=== PATIENT | female | born 1950 | race Caucasian/White ===

== ENCOUNTER 2018-03-28 09:29 | Outpatient (RCR) | payer MEDICARE, BC, SELFPAY | END 2018-04-09 23:59 | LOC: DC 09:29 | PROVIDERS: Family Provider Family Medicine; PCP Family Medicine; Visit Provider Family Medicine | DX: E11.9 Type 2 diabetes mellitus without complications (principal); R63.5 Abnormal weight gain; Z79.4 Long term (current) use of insulin | CPT/HCPCS: 97803 ==

== ENCOUNTER → 2018-04-05 14:48 | Outpatient (CLI) | payer MEDICARE, BC, SELFPAY ==
--- NOTE | 2018-04-05 | MASS_PTH ---
PATIENT: EVA EGAN LOC: [facility] U#:[id number] AGE/SX: 75/F ROOM: RE04/05/[address]: Dr. Tez Tyson DDS : 1950 BED: DIS: SPEC #: [id number] RECD: 04/05/18 14:45 STATUS: JUVENTINO AUGUSTINA #: [id number] NADJA: 04/05/18 00:[address]: Tez Tyson DEPT: SURGICAL PATHOLOGY RECD BY: Devin Haley ENTERED: 04/08/18 08:59 SP TYPE: Mass OTHR DR: Dr. Milady Louis MD Tissues: Skin of lip, NOS Procedures: Surgery Specimen Level IV HEADER OPERATION: Biopsy upper lip mass PRE-OP DIAGNOSIS: Probable fibroma TISSUE SUBMITTED: Biopsy upper lip MICROSCOPIC DIAGNOSIS Upper lip, biopsy: Squamous mucosa with subepithelial fibrosis, consistent with irritation fibroma. SJ:sadia 04/09/18 MICROSCOPIC DESCRIPTION Slides are reviewed. GROSS DESCRIPTION Received in fixative is one container labeled with the patient's name and designated lip. The specimen consists of a piece of soliman mucosal tissue measuring 0.5 cm in diameter and 0.3 cm in length. The entire specimen is submitted in one cassette. / SJ:rg 04/08/18 TC:5 CPT: 73133
== END ==
PROVIDERS: Family Provider Family Medicine; PCP Family Medicine; Visit Provider Dentist Oral and Maxillofacial Surgery
DX: R22.0 Localized swelling, mass and lump, head (principal)
CPT/HCPCS: 88305

== ENCOUNTER 2018-06-10 09:11 | Outpatient (RCR) | payer MEDICARE, BC, SELFPAY | END 2018-06-10 23:59 | LOC: DC 09:11 | PROVIDERS: Family Provider Family Medicine; PCP Family Medicine; Visit Provider Family Medicine | DX: E11.9 Type 2 diabetes mellitus without complications (principal); R63.5 Abnormal weight gain; Z79.4 Long term (current) use of insulin | CPT/HCPCS: 97803 ==

== ENCOUNTER 2019-02-27 18:09 | Emergency (ER) | payer MEDICARE, BC, SELFPAY ==
[2019-02-27 18:11] VITALS: BP 147/82; PULSE 100; RESP 20; TEMP 36.2; O2SAT 95; BMI 39.9
--- NOTE | 2019-02-27 18:24 | RAD_ITS ---
HISTORY: Status post fall with chest pain XR Chest 1 View TECHNIQUE: 1 view # of images incl. paperwork: 1 COMPARISON: 09/07/2014 FINDINGS: Normal cardiomediastinal silhouette. Pulmonary vasculature appears normal. The lungs are clear. No pleural effusions or pneumothorax. No acute osseous abnormality of the thorax. RAD/Chest 1 View (Portable) IMPRESSION: 1. No acute cardiopulmonary disease. at 1925 Reported and signed by: Tru Ascencio MD Electronically Signed: Tru Ascencio MD at 19:24 EDT Tel , Service support ,
--- NOTE | 2019-02-27 18:24 | RAD_ITS ---
HISTORY: Status post fall with right femur pain XR Femur Min 2 Views TECHNIQUE: 2 views # of images incl. paperwork: 4 COMPARISON: None. FINDINGS: Comminuted moderately displaced fracture of the proximal femoral diaphysis with oblique fracture plane extending into the left subtrochanteric region. Femoral neck has normal appearance. Mild osteoarthritis of the right hip joint. Mid and distal femur are intact. Soft tissues appear unremarkable. No radiopaque foreign body. RAD/Femur Min 2 Views IMPRESSION: 1. Comminuted moderately displaced proximal femoral diaphyseal fracture with oblique fracture plane extending into the subtrochanteric region. at 1927 Reported and signed by: Tru Ascencio MD Electronically Signed: Tru Ascencio MD at 19:25 EDT Tel , Service support ,
[2019-02-27] MEDS: HYDROmorphone 1 MG/ML Syringe IV ×3 (18:28→20:51)
--- NOTE | 2019-02-27 19:36 | ED.DCSUM_ITS ---
- ER Visit Summary Date of Service: 02/27/19 Chief Complaint: Fall History of Present Illness: The patient is a 69 F who reports that she was trying on pants and slipped and fell. States that she has pain to her left side is 10-10 severity. She has right sided thoracic pain that is 1 out of 10 in severity. No blow to the head or loss of consciousness. She is not on blood thinner. No shoulder, wrist, or back pain. Physical Examination: Vitals: Stable. Afebrile. Neck: No vertebral tenderness. Full ROM without difficulty. Cleared by NEXUS criteria. Back: No vertebral tenderness. General: A&O x 3. NAD. Cardiovascular exam: Regular rate and rhythm, no murmur, rub or gallop. Respiratory exam: Chest nontender. No crepitus. Clear to auscultation bilaterally. No wheezes or stridor. Abdominal exam: Soft, nontender, nondistended, normal bowel sounds. No pain in RUQ or LUQ specifically. No peritoneal signs. Extremity: Obvious deformity of the proximal right femur. She has this held in external rotation. She is neurovascular intact distally with normal sensation light touch and 2+ dorsalis pedis pulse. Test Results: X-ray shows a spiral fracture of the proximal humerus that begins just inferior to the lesser trochanter. Chest x-ray shows no obvious pneumothorax. Emergency Department Course and Treatment: Patient was treated with Dilaudid IV. She was discussed with Dr. Maggy Thomas who asked that we transfer her to a tertiary care center. Treatment Plan: Patient decided to go to [facility]. She was discussed with Dr. Adkins who has accepted her in transfer. She was not placed in a splint and will be transferred in a position of comfort. She is going to the emergency department to see if she needs a traction pin. Disposition: Transferred in improved condition. Impression: 1. Fall. 2. Right proximal femur fracture. This note was generated with [employer] dictation software. It may contain incorrect words, spelling, and punctuation that were not noted in review of the chart prior to signing ED Disposition - Plan for ED Patient: Referrals: Herb Allen [Primary Care Provider] -
[2019-02-27 19:40] VITALS: BP 137/80; PULSE 93; RESP 18; O2SAT 97
[2019-02-27 20:07] VITALS: BP 144/62; PULSE 93; RESP 18; O2SAT 94
== END 2019-02-27 20:59 | disposition short-term general hospital (02) ==
LOC: ED 19:11
PROVIDERS: Emergency Provider Emergency Medicine; Family Provider Family Medicine; PCP Family Medicine
DX: S72.21XA Displaced subtrochanteric fracture of right femur, initial encounter for closed fracture (principal); E10.9 Type 1 diabetes mellitus without complications; M79.7 Fibromyalgia; Z85.43 Personal history of malignant neoplasm of ovary; Z79.4 Long term (current) use of insulin; Z79.82 Long term (current) use of aspirin; Z79.899 Other long term (current) drug therapy; W18.30XA Fall on same level, unspecified, initial encounter; Y93.89 Activity, other specified; Y92.89 Other specified places as the place of occurrence of the external cause; Y99.8 Other external cause status
CPT/HCPCS: 71045; 73552; 96374; 96376; 99285; J7030; A4216

== ENCOUNTER 2020-12-19 16:46 | Emergency (ER) | payer MEDICARE, BC, SELFPAY ==
[2020-12-19 16:47] VITALS: BP 163/73; PULSE 77; RESP 21; TEMP 36.8; O2SAT 100; BMI 38.2
--- NOTE | 2020-12-19 16:52 | CT_ITS ---
EXAM: CT CERVICAL SPINE WITHOUT INTRAVENOUS CONTRAST CLINICAL INDICATION: Trauma TECHNIQUE: Helically acquired images were obtained of the cervical spine without intravenous contrast. 2D reformatted images were reviewed. This CT exam was performed using one or more of the following dose reduction techniques: automated exposure control, adjustment of the mA and/or kV according to patient size, and/or use of iterative reconstruction technique. This report was created using [email or web address] report generation technology. COMPARISON: None. FINDINGS: VERTEBRAE: Anterior spondylosis with disc space narrowing and posterior disc osteophyte complex at C4-C5, C5-C6 and C6-C7. Mild canal narrowing and bilateral foraminal narrowing. No fracture. No traumatic subluxation. No discrete lytic or blastic abnormality. Normal alignment. Normal craniocervical junction and cervicothoracic junction. DISCS/SPINAL CANAL/NEURAL FORAMINA: See above. SOFT TISSUES: Unremarkable. No prevertebral soft tissue swelling. VASCULATURE: Atherosclerosis of the carotid arteries. LYMPH NODES: Unremarkable. No cervical adenopathy. LUNG APICES: Unremarkable as visualized. Clear. CT/Spine Cervical without Contras IMPRESSION: No acute findings in the cervical spine. Electronically Signed: Sandeep Sinclair MD (Brooks) at 18:02 EDT , Service support ,
--- NOTE | 2020-12-19 16:52 | CT_ITS ---
EXAM: CT CHEST, ABDOMEN AND PELVIS WITH INTRAVENOUS CONTRAST CLINICAL INDICATION: Trauma TECHNIQUE: Helically acquired images were obtained of the chest, abdomen and pelvis with intravenous contrast. This CT exam was performed using one or more of the following dose reduction techniques: automated exposure control, adjustment of the mA and/or kV according to patient size, and/or use of iterative reconstruction technique. This report was created using [employer] report generation technology. CONTRAST: IV 100mL [id number] COMPARISON: None. FINDINGS: CHEST: LUNGS AND PLEURAL SPACES: Minimal subpleural atelectasis in the bilateral lower lobes. No mass. No pneumothorax. HEART: Unremarkable. Heart size is normal. No pericardial effusion. MEDIASTINUM: Small hiatal hernia. No mediastinal or hilar adenopathy. Esophagus is unremarkable. THYROID: Unremarkable. No thyroid lesions. ABDOMEN: LIVER: Unremarkable. Homogeneous. No focal mass. GALLBLADDER AND BILE DUCTS: Cholecystectomy. Air within the biliary system compatible with prior sphincterotomy. No intra- or extrahepatic biliary ductal dilation. PANCREAS: Unremarkable. No focal cystic or solid mass. SPLEEN: Unremarkable. Normal size without focal cystic or solid mass. ADRENALS: Unremarkable. No nodules. KIDNEYS AND URETERS: Nonobstructing left renal calculus. No hydronephrosis. Normal renal size and position. STOMACH AND BOWEL: Right lower quadrant ileostomy present. No stomach or bowel distention. No focal inflammatory change. PELVIS: APPENDIX: No evidence of acute appendicitis. BLADDER: Unremarkable. REPRODUCTIVE: Unremarkable as visualized. No mass. CHEST, ABDOMEN and PELVIS: INTRAPERITONEAL SPACE: Unremarkable. No ascites or other fluid collection. No free air. BONES/JOINTS: Degenerative changes of the thoracic spine. Degenerative changes of the lumbar spine. Operative changes of the proximal right femur. No suspicious lytic or blastic abnormality. SOFT TISSUES: Unremarkable. No discrete abdominal or pelvic wall hernia. VASCULATURE: Coronary artery atherosclerosis. Atherosclerosis of the abdominal aorta and iliac arteries. Subcentimeter peripherally calcified splenic artery aneurysms are seen within the splenic hilum; no imaging follow-up needed due to small size. No aortic dissection. No obvious central pulmonary embolism although this study was not performed with the pulmonary embolism protocol. LYMPH NODES: Unremarkable. No enlarged lymph nodes. CT/CT Chest, Abd, Pel w/Contrast IMPRESSION: No acute findings in the chest, abdomen or pelvis. Electronically Signed: Sandeep Sinclair MD (Brooks) at 18:11 EDT , Service support ,
--- NOTE | 2020-12-19 16:52 | CT_ITS ---
EXAM: CT HEAD WITHOUT INTRAVENOUS CONTRAST CLINICAL INDICATION: Trauma TECHNIQUE: Multiple axial images were obtained of the head without intravenous contrast. This CT exam was performed using one or more of the following dose reduction techniques: automated exposure control, adjustment of the mA and/or kV according to patient size, and/or use of iterative reconstruction technique. This report was created using [employer] report generation technology. COMPARISON: None. FINDINGS: BRAIN AND EXTRA-AXIAL SPACES: Unremarkable. No intra- or extra-axial hemorrhage. No evidence of acute infarct. No intracranial mass or mass effect. There is preservation of the sims/white matter interface. Posterior fossa structures are unremarkable. Ventricles are appropriate for age. No hydrocephalus. Basal cisterns are patent. BONES/JOINTS: Hyperostosis frontalis internus. No discrete lytic or blastic abnormalities. SINUSES: Unremarkable as visualized. Clear. MASTOID AIR CELLS: Unremarkable. Clear. ORBITS: Visualized globes, extraocular muscles, optic nerves and retrobulbar fat appear unremarkable. NASAL CAVITY/SEPTUM: Rightward deviation of the nasal septum. CT/Brain/Head without Contrast IMPRESSION: No acute findings in the head/brain. Electronically Signed: Sandeep Sinclair MD (Brooks) at 18:01 EDT , Service support ,
--- NOTE | 2020-12-19 16:52 | CT_ITS ---
EXAM: CT MAXILLOFACIAL WITHOUT INTRAVENOUS CONTRAST CLINICAL INDICATION: Trauma TECHNIQUE: Helically acquired images were obtained of the face without intravenous contrast. This CT exam was performed using one or more of the following dose reduction techniques: automated exposure control, adjustment of the mA and/or kV according to patient size, and/or use of iterative reconstruction technique. This report was created using [employer] report generation technology. COMPARISON: None. FINDINGS: BONES/JOINTS: Unremarkable. No displaced fracture. No discrete lytic or blastic abnormalities. SOFT TISSUES: Unremarkable. No focal subcutaneous swelling. No discrete fluid collections. ORBITS: Unremarkable. Both globes are unremarkable. Extraocular muscles are normal. Retrobulbar fat appears unremarkable. SINUSES: Unremarkable as visualized. Clear. MASTOID AIR CELLS: Unremarkable as visualized. Clear. DENTAL: No acute findings. No periodontal osseous erosion. NASAL CAVITY/SEPTUM: Rightward deviation of the nasal septum with an apical spur. CT/Sinus/Facial Bone IMPRESSION: No acute findings in the face. Electronically Signed: Sandeep Sinclair MD (Brooks) at 18:03 EDT , Service support ,
--- NOTE | 2020-12-19 17:05 | ED.VIS.GEN ---
History of Present Illness Chief Complaint: Fall Narrative: This patient is a 70-year-old female who presents after a fall. She was stepping down off the curb and fell onto her left side. She denies any preceding dizziness or lightheadedness. No loss of consciousness. No vomiting. No headache. She complains of pain at her left jaw chest wrist and hip. She does complain of feeling short of breath but is uncertain if this is just because of the chest pain with inspiration. No recent illness. No fever cough vomiting diarrhea. 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 Past Medical History - Allergies and Home Meds Allergies/Adverse Reactions: Allergies KELLI Inhibitors Allergy (Verified 12/19/20 16:54) Other ciprofloxacin [From Cipro] Adverse Reaction (Verified 12/19/20 16:54) Other causes c-diff TAPE Allergy (Uncoded 12/19/20 16:54) Rash Primary Care Physician: Ana Henning MD [Primary Care Provider] - Past Medical History: - - Ovarian cancer, diabetes, hypertension, hyperlipidemia Surgical History: - - Laparoscopic cholecystectomy Smoking Status: Smoker, status unknown Review of Systems All systems negative except as indicated General: Denies: Fever Eyes: Denies: Visual changes - bilaterally ENT: Denies: Bilateral ear pain Cardiovascular: Reports: Chest pain Respiratory: Reports: Dyspnea Gastrointestinal: Denies: Abdominal pain, Nausea, Vomiting, Diarrhea Musculoskeletal: Reports: Back pain, Extremity Pain. Denies: Myalgias Skin: Denies: Rash Neurological: Denies: Headache Hematologic: Reports: Easy bruising, Easy bleeding Allergy: Denies: Uticaria Physical Exam Vital Signs/Narrative: Vital Signs Temp Pulse Resp BP Pulse Ox 12/19/20 16:47 98.2 F 77 21 H 163/73 H 100 Inital Vital Signs reviewed: Yes General: Well nourished Head: Normocephalic, - - Patient has a hematoma over the left mandible no jaw malocclusion or midface instability Eyes: EOMI ENT: Moist mucous membranes Neck: Nontender Cardiovascular: Regular rate, Regular rhythm Respiratory: No distress, CTA bilaterally, - - Breath sounds bilaterally, left-sided chest wall tenderness no crepitus Abdomen: Soft, Nontender, Nondistended Extremities: - - Active full range of motion of the left lower extremity without pain, full passive range of motion of the left upper extremity she does have pain with movement of the left wrist but no deformity she does have some tenderness along the left wrist Skin: Normal color Neurological: Alert, Oriented x3, - - GCS of 15 with no focal or lateralizing neurological deficits Psychological: Normal affect Diagnostic/Tx/Re-eval Impressions Brain CT 12/19/20 16:52 IMPRESSION: No acute findings in the head/brain. Electronically Signed: Sandeep Sinclair MD (Brooks) at 18:01 EDT , Service support , Cervical Spine CT 12/19/20 16:52 IMPRESSION: No acute findings in the cervical spine. Electronically Signed: Sandeep Sinclair MD (Brooks) at 18:02 EDT , Service support , Chest/Abdomen/Pelvis CT 12/19/20 16:52 IMPRESSION: No acute findings in the chest, abdomen or pelvis. Electronically Signed: Sandeep Sinclair MD (Brooks) at 18:11 EDT , Service support , Facial/Sinus 12/19/20 16:52 IMPRESSION: No acute findings in the face. Electronically Signed: Sandeep Sinclair MD (Brooks) at 18:03 EDT , Service support , Hip X-Ray 12/19/20 17:40 IMPRESSION: No acute findings in the pelvis or left hip. Electronically Signed: Sandeep Sinclair MD (Brooks) at 18:08 EDT , Service support , Wrist X-Ray 12/19/20 17:40 IMPRESSION: No fracture or malalignment. Electronically Signed: Sandeep Sinclair MD (Brooks) at 18:08 EDT , Service support , 12/19/20 16:52 Brain/Head without Contrast [CT] Stat CT Chest, Abd, Pel w/Contrast [CT] Stat Sinus/Facial Bone [CT] Stat Spine Cervical without Contras [CT] Stat 12/19/20 17:40 Hip Min 2 Views (Portable) [RAD] Stat Wrist min 3 Views [RAD] Stat Laboratory Results 12/19/20 12/19/20 12/19/20 17:25 17:25 17:25 WBC 8.5 RBC 4.35 Hgb 12.0 Hct 37.3 MCV 85.7 MCH 27.6 MCHC 32.2 RDW Std Deviation 42.7 RDW Coeff of Vesna 13.6 Plt Count 260 MPV 9.8 Immature Gran % (Auto) 0.900 Neut % (Auto) 69.6 Lymph % (Auto) 17.1 L [place] % (Auto) 8.3 Eos % (Auto) 3.3 Baso % (Auto) 0.8 Absolute Neuts (auto) 5.9 Absolute Lymphs (auto) 1.46 Nucleated RBC % 0 PT 23.5 H INR 2.2 Sodium 135 L Potassium 4.1 Chloride 103 Carbon Dioxide 26.0 Anion Gap 6 BUN 32 H Creatinine 1.15 H Estim Creat Clear Calc 37.65 Est GFR (MDRD) Af Amer 60 Est GFR (MDRD) Non-Af 50 L BUN/Creatinine Ratio 27.8 H Glucose 190 H Calcium 9.4 Total Bilirubin 0.30 AST 23 ALT 43 Alkaline Phosphatase 62 Total Protein 6.8 Albumin 3.4 Globulin 3.4 Albumin/Globulin Ratio 1.0 Ethyl Alcohol 12/19/20 17:25 WBC RBC Hgb Hct MCV MCH MCHC RDW Std Deviation RDW Coeff of [place]na Plt Count MPV Immature Gran % (Auto) Neut % (Auto) Lymph % (Auto) [place] % (Auto) Eos % (Auto) Baso % (Auto) Absolute Neuts (auto) Absolute Lymphs (auto) Nucleated RBC % PT INR Sodium Potassium Chloride Carbon Dioxide Anion Gap BUN Creatinine Estim Creat Clear Calc Est GFR (MDRD) Af Amer Est GFR (MDRD) Non-Af BUN/Creatinine Ratio Glucose Calcium Total Bilirubin AST ALT Alkaline Phosphatase Total Protein Albumin Globulin Albumin/Globulin Ratio Ethyl Alcohol 8.0 - Medical Decision Making Given patient's injury on anticoagulation with complains of head injury facial pain as well as injury to the chest trauma imaging obtained including CT imaging of the head/brain, cervical spine, facial bones, chest abdomen and pelvis. No acute traumatic injuries were identified no intracranial hemorrhage, no fractures. 3 view x-ray of the left wrist and 2 view x-ray of the left hip were obtained. On my interpretation these are negative for fracture. X-rays were read by radiology who agree. Serum laboratory studies were sent as part of trauma evaluation and these are unremarkable. Patient was advised on supportive care. She understands to return for new or worsening symptoms. She was instructed on signs and symptoms to monitor for. The patient was discharged. ED Disposition - Plan for ED Patient: Disposition: Home or Assisted Living Diagnosis: Multiple contusions, Facial hematoma, Closed head injury Instructions: ED Hematoma, ED Facial Contusion, ED Mechanical Fall, ED Head Injury (Adult), ED Soft Tissue Contusion Referrals: Ana Henning MD [Primary Care Provider] -
[2020-12-19] MEDS: Ondansetron 4 MG/2 ML Vial IV (17:23)
[2020-12-19] MEDS: Morphine 4 MG/ML Syringe IV (17:23)
[2020-12-19 17:40] LABS: Absolute Lymphocyte Count 1.46 X10^3/uL (0.83-4.51); Absolute Neutrophil Count 5.9 X10^3/uL (2.0-7.7); Basophil# 0.07 X10^3/uL; Basophil% 0.8 % (0-1); Eosinophil# 0.28 X10^3/uL; Eosinophils% 3.3 % (0-5); Hematocrit 37.3 % (37-47); Lymphocyte # 1.46 X10^3/ul (4.0); Lymphocyte % 17.1 % (19-41); Mean Corp Hgb Conc 32.2 g/dL (32-36); Mean Corpuscular Hgb 27.6 pg (27.0-32.0); Mean Corpuscular Volume 85.7 fL (81-99); Mean Platelet Vol. 9.8 fl (6.2-12.0); Monocyte# 0.71 X10^3/uL; Monocyte% 8.3 % (0-10); NRBC Flagged by Analyzer 0 % (0-5); Neutrophil # 5.93 X10^3/uL (2.7-7.7); Neutrophil % 69.6 % (47-70); Platelet Count 260 K/mm3 (150-450); RBC Distribution Width CV 13.6 % (11.6-14.6); RBC Distribution Width SD 42.7 fl (35.1-43.9); Red Blood Count 4.35 M/mm3 (4.2-5.4); White Blood Count 8.5 K/mm3 (4.4-11.0)
--- NOTE | 2020-12-19 17:40 | RAD_ITS ---
STUDY: X-RAY - LEFT WRIST REASON FOR EXAM: Female, 70 years old. Trauma TECHNIQUE: 3 view(s) of the wrist were obtained. COMPARISON: None. FINDINGS: Normal visualized distal radius and ulna. Normal radiocarpal articulation. Normal distal radioulnar articulation. Normal carpal bones. Normal carpal articulations. There is degenerative arthrosis of the carpometacarpal articulation of the thumb. Normal second through fifth carpometacarpal articulations. Normal visualized metacarpal bones. The soft tissue structures are unremarkable. RAD/Wrist min 3 Views IMPRESSION: No fracture or malalignment. Electronically Signed: Sandeep Sinclair MD (Brooks) at 18:08 EDT , Service support ,
--- NOTE | 2020-12-19 17:40 | RAD_ITS ---
EXAM: XR LEFT HIP WITH PELVIS WHEN PERFORMED, 2 OR 3 VIEWS CLINICAL INDICATION: Trauma TECHNIQUE: Two or three views of the left hip with pelvis when performed. This report was created using [email or web address] report generation technology. COMPARISON: None. FINDINGS: BONES/JOINTS: Degenerative changes of the left hip with acetabular spurring. Operative changes of the right proximal femur partially visualized. SOFT TISSUES: Surgical clips in the left hemipelvis. No soft tissue swelling or gas. OTHER FINDINGS: Excreted contrast in the urinary tract. RAD/Hip Min 2 Views (Portable) IMPRESSION: No acute findings in the pelvis or left hip. Electronically Signed: Sandeep Sinclair MD (Brooks) at 18:08 EDT , Service support ,
[2020-12-19 17:51] LABS: International Normalized Ratio 2.2; Prothrombin Time (Protime)PT. 23.5 SECONDS (11.7-14.9)
[2020-12-19 18:03] LABS: AST(SGOT) 23 U/L (15-37); Alanine Aminotransfer ALT/SGPT 43 U/L (13-56); Albumin, Serum 3.4 g/dL (3.2-5.0); Alkaline Phosphatase 62 U/L (45-117); Anion Gap 6 (5-15); BUN 32 mg/dL (7-18); BUN/Creat Ratio 27.8 RATIO (10-20); Calcium,Total 9.4 mg/dL (8.5-10.1); Chloride 103 mmol/L (98-107); Creatinine, Serum 1.15 mg/dL (0.55-1.02); EST Glomerular Filtration Rate 50 mL/min (>60); Est Glom Filt Rate - Afr Amer 60 mL/min (>60); Estimated Creatinine Clearance 37.65 ml/min; Globulin 3.4 g/dL (2.2-4.2); Glucose 190 mg/dL (74-106); Potassium 4.1 mmol/L (3.5-5.1); Protein, Total 6.8 g/dL (6.4-8.2); Sodium Level 135 mmol/L (136-145)
[2020-12-19 18:47] VITALS: BP 144/71; PULSE 75; RESP 17; O2SAT 95
[2020-12-19 19:10] VITALS: BP 120/54; PULSE 74; RESP 18; O2SAT 95
== END 2020-12-19 19:11 | disposition home or self-care (01) ==
LOC: ED 18:25
PROVIDERS: Emergency Provider Emergency Medicine; PCP Family Medicine Sports Medicine
DX: S00.83XA Contusion of other part of head, initial encounter (principal); S09.90XA Unspecified injury of head, initial encounter; F17.200 Nicotine dependence, unspecified, uncomplicated; I10 Essential (primary) hypertension; E78.5 Hyperlipidemia, unspecified; E11.9 Type 2 diabetes mellitus without complications; W19.XXXA Unspecified fall, initial encounter; Z79.02 Long term (current) use of antithrombotics/antiplatelets; Z79.4 Long term (current) use of insulin
CPT/HCPCS: 70450; 70486; 71260; 72125; 73110; 73502; 74177; 80053; 82077; 85025; 85610; 96374; 96375; 99285; Q9967; A4216; J2405

== ENCOUNTER 2022-03-16 11:52 | Emergency (ER) | payer MEDICARE, BC, SELFPAY ==
[2022-03-16 11:58] VITALS: BP 157/75; PULSE 75; RESP 18; TEMP 37.3; BMI 38.9
--- NOTE | 2022-03-16 12:23 | ED.RN ---
Patient emotionally distraught complaining of issues she is having with a nursing facility taking care of her who has alzheimers. Denies any suicidal attempts or thoughts. She recently had to hire an city attorney for the financial issues she having.
--- NOTE | 2022-03-16 12:54 | EDS_ITS ---
HPI HPI - Psych History of Present Illness Chief Complaint: Mental Health Informant: patient, family and EMS Narrative Narrative: 72-year-old female presenting to the emergency department with stress. Patient states that her has dementia and is in a care home. She states that in December she tried to get on Medicaid and had conflict in relationship with her dependency case manager. She states that this caused her great stress. She states she had to get a supervisor residential. She reports that today she just cannot deal with the stress of caring for him. She denies suicidal or homicidal ideation. She has not reached out to a counselor or primary care. 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 History of non-ST elevation myocardial infarction (NSTEMI) (06/2021) HOCM (hypertrophic obstructive cardiomyopathy) Hyperlipidemia Ileostomy in place Obstructive sleep apnea Osteoporosis Ovarian cancer Home Medications calcium citrate 315 mg calcium-vitamin D3 6.25 mcg (250 unit) tablet 1 ea PO BID 11/10/13 [History Last Taken 11/10/13 08:00] cholecalciferol (vitamin D3) 50 mcg (2,000 unit) tablet 2,000 unit PO DINNER 11/10/13 [History Last Taken 11/09/13 17:00] duloxetine 60 mg capsule,delayed release 60 mg PO DAILY 11/10/13 [History Last Taken 11/10/13 08:00] insulin aspart U-100 100 unit/mL (3 mL) subcutaneous pen (Novolog Flexpen U-100 Insulin aspart) 15 units subcut BREAKFAST 11/10/13 [History Last Taken 11/09/13 17:00] insulin aspart U-100 100 unit/mL (3 mL) subcutaneous pen (Novolog Flexpen U-100 Insulin aspart) units subcut TIDCM 11/10/13 [History Last Taken 11/10/13 08:00] lansoprazole 30 mg capsule,delayed release (Prevacid) 30 mg PO DAILY 11/10/13 [History Last Taken 11/10/13 08:00] multivitamin with folic acid 400 mcg tablet (Thera) 1 tab PO DAILY 11/10/13 [History Last Taken 11/10/13 08:00] albuterol sulfate 90 mcg/actuation aerosol inhaler 2 puff inhalation Q4H PRN PRN Sob &/Or Wheezing 12/19/20 [History Last Taken Unknown] denosumab 60 mg/mL subcutaneous syringe 60 mg SQ 12/19/20 [History Last Taken Unknown] leflunomide 10 mg tablet 10 mg PO DAILY 12/19/20 [History Last Taken Unknown] magnesium oxide 400 mg PO DAILY 12/19/20 [History Last Taken Unknown] trazodone 100 mg tablet 100 mg PO QHS 12/19/20 [History Last Taken Unknown] amlodipine 2.5 mg tablet 2.5 mg PO DAILY 12/26/21 [History Last Taken Unknown] aspirin 81 mg tablet,delayed release (Adult Low Dose Aspirin) 81 mg PO DAILY 12/26/21 [History Last Taken Unknown] atorvastatin 40 mg tablet 40 mg PO QHS 12/26/21 [History Last Taken Unknown] carvedilol 12.5 mg tablet 12.5 mg PO BID 12/26/21 [History Last Taken Unknown] clopidogrel 75 mg tablet 75 mg PO DAILY 12/26/21 [History Last Taken Unknown] htxbcrgyh-vfmW-fqoanse-FOS-bromelain 1,937 mg-188 mg/15 mL oral liquid ml PO 12/26/21 [History Last Taken Unknown] estradiol 1 appful vaginal 2XW 12/26/21 [History Last Taken Unknown] hydroxychloroquine 200 mg tablet 200 mg PO DAILY 12/26/21 [History Last Taken Unknown] insulin glargine 100 unit/mL (3 mL) subcutaneous pen (Basaglar KwikPen U-100 Insulin) 17 unit subcut BID 12/26/21 [History Last Taken Unknown] iron 18 mg tablet 18 mg PO DAILY 12/26/21 [History Last Taken Unknown] loperamide 2 mg tablet 2 mg PO Q6H PRN 12/26/21 [History Last Taken Unknown] promethazine 25 mg tablet 25 mg PO Q6H PRN 12/26/21 [History Last Taken Unknown] trospium 20 mg tablet 20 mg PO DAILY 12/26/21 [History Last Taken Unknown] lorazepam 0.5 mg tablet 0.5 mg PO TID PRN anxiety #20 tabs 03/16/22 [Rx Last Taken Unknown] Allergy/AdvReac Type Severity Reaction Status Date / Time KELLI Inhibitors Allergy Other Verified 03/16/22 12:03 ciprofloxacin [From Cipro] AdvReac Other Verified 03/16/22 12:03 TAPE Allergy Rash Uncoded 03/16/22 12:03 Surgical History History of cholecystectomy History of hysterectomy History of laminectomy History of left heart catheterization (07/04/21) Social History Smoking Status: Never smoker ROS ROS ED Constitutional Constitutional ED: Denies chills or weight loss Eyes Eyes: Denies change in vision or diplopia ENT ENT ED: Denies ear pain, rhinorrhea or sore throat Cardiovascular Cardiovascular: Denies chest pain, orthopnea, palpitations or racing heartbeat Respiratory/Chest Respiratory/Chest: Denies cough, dyspnea or orthopnea Gastrointestinal Gastrointestinal: Denies abdominal pain, diarrhea, nausea or vomiting Genitourinary Genitourinary ED: Denies dysuria, hematuria or urinary frequency Musculoskeletal Musculoskeletal: Denies arthralgias or myalgias Integumentary Denies abscess or rash Neurologic Neurologic: Denies headache(s) or weakness Psychiatric Psychiatric: Reports anxiety and depression; Denies suicidal ideation or suicidal thoughts Endocrine Endocrinology: Denies polydipsia, polyphagia or polyuria Allergic/Immunologic Allergic/Immunologic ED: Denies mouth swelling, tongue swelling or urticaria EXAM Physical Exam Const Vital Signs: 03/16/22 11:58 03/16/22 13:00 03/16/22 14:00 Temperature 99.2 F H Temperature Source Temporal Pulse Rate 75 Respiratory Rate 18 18 18 Blood Pressure 157/75 H Blood Pressure Mean 102 03/16/22 15:00 Temperature Temperature Source Pulse Rate Respiratory Rate 18 Blood Pressure Blood Pressure Mean Positive well nourished, well developed and obese General Appearance ED: well developed Nutritional Appearance: obese HEENT Reports normocephalic, head/scalp atraumatic and moist mucous membranes Eyes PERRL and EOMs intact bilaterally Neck no lymphadenopathy, supple and no JVD Resp normal respiratory effort and clear to auscultation bilaterally Cardio regular rate, regular rhythm and no murmurs GI normal to inspection, nondistended, normoactive bowel sounds and non-tender Palpation: soft Back/Spine no CVA tenderness and normal ROM Extremity normal to inspection General Extremety ED: Negative for edema General Extremity: Negative for edema Neuro oriented x3 and CN's II-XII intact bilaterally Sensorium / Orientation: alert Motor Exam: strength 5/5 throughout Psych mental status grossly normal Appearance: grossly normal and appropriate Attitude: agitated Activity / Motor Behavior: restless Speech: rapid Mood & Affect: depressed and tearful Thought Content: No suicidality and No homicidality Memory / Cognition: memory grossly intact Skin no rashes or lesions noted and no wounds MDM MDM MDM Narrative Medical decision making narrative: Patient is not suicidal or homicidal. Due to high volume of mental health patients in the emergency room case management was unable to see them first couple hours. They were able to assess them. She does express some paranoid behaviors such as not wanting to go check her mail or leave the house. She is not however having auditory visual hallucinations. She is not disheveled. She is not suicidal or homicidal. She would benefit from counseling and when I talk to her about the counseling center and the partial hospitalization program. She is scared that we are going to just locked her up. Daughter feels she would do better if she had something for anxiety I can write for some Ativan until she can be seen. Discharge Plan Triage Chief Complaint: Mental Health ED Provider: Sergio Rachel Dx/Rx/DC Orders Clinical Impression: Depression, Anxiety Instructions: ED Anxiety Reaction, ED Depression Prescriptions: New lorazepam [lorazepam] 0.5 mg tablet 0.5 mg PO TID PRN (Reason: anxiety) Qty: 20 0RF No Action hydroxychloroquine 200 mg tablet 200 mg PO DAILY amlodipine 2.5 mg tablet 2.5 mg PO DAILY Brian Hernandez U-100 Insulin 100 unit/mL (3 mL) insulin pen 17 unit subcut BID estradiol 0.01 % (0.1 mg/gram) cream 1 appful vaginal 2XW trospium 20 mg tablet 20 mg PO DAILY peul-xjfG-zcdgzhp-FOS-bromeln 1,937-188 mg/15 mL liquid PO atorvastatin 40 mg tablet 40 mg PO QHS carvedilol 12.5 mg tablet 12.5 mg PO BID Rx Instructions: must administer with a meal/food clopidogrel 75 mg tablet 75 mg PO DAILY aspirin [Adult Low Dose Aspirin] 81 mg tablet,delayed release (DR/EC) 81 mg PO DAILY promethazine 25 mg tablet 25 mg PO Q6H PRN Label Comments: take 1 tablet by mouth every 6 hours if needed for nausea and vomiting loperamide 2 mg tablet 2 mg PO Q6H PRN iron 18 mg tablet 18 mg PO DAILY lansoprazole [Prevacid] 30 MG capsule 30 mg PO DAILY Label Comments: acid reflux duloxetine 60 MG capsule 60 mg PO DAILY Label Comments: fibromyalgia/depression insulin aspart U-100 [Novolog Flexpen U-100 Insulin] 100 UNITS/ML insulin pen 15 units subcut BREAKFAST Label Comments: diabetes insulin aspart U-100 [Novolog Flexpen U-100 Insulin] 100 UNITS/ML insulin pen subcut TIDCM Label Comments: diabetes Rx Instructions: sliding scale cholecalciferol (vitamin D3) 2,000 UNIT tablet 2,000 unit PO DINNER Label Comments: supplement calcium citrate-vitamin D3 1 EACH tablet 1 ea PO BID Label Comments: supplement multivitamin with folic acid [Thera] 1 TABLET tablet 1 tab PO DAILY Label Comments: supplement leflunomide 10 MG tablet 10 mg PO DAILY trazodone 100 MG tablet 100 mg PO QHS albuterol sulfate 1 INHALER inhaler 2 puff INHALATION Q4H PRN PRN (Reason: Sob &/Or Wheezing) denosumab 60 MG/ML syringe 60 mg SQ magnesium oxide 200 MG tablet 400 mg PO DAILY Primary Care Provider: Pavithra Medellin Referrals: Counseling,Center [GROUP OF PHYSICIANS] - As soon as possible (for mental health counseling) Pavithra Medellin MD [Primary Care Provider] - As soon as possible Disposition Disposition: Home, Self Care
[2022-03-16 13:00] VITALS: RESP 18
[2022-03-16 14:00] VITALS: RESP 18
[2022-03-16 15:00] VITALS: RESP 18
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
[2022-03-16 17:34] VITALS: BP 152/59; PULSE 78
--- NOTE | 2022-03-17 16:20 | CM.ED ---
Addendum entered by Sarita Banegas 03/17/22 16:35: SW received call from pt. Pt states that she is doing ok today. Pt states that [facility] behavior health did call her and they felt pt would benefit more from 1 on 1 therapy 3x a week so they referred her to different agencies. Pt states that she called the numbers and are supposed to call her back. SW informed pt that this worker did call [facility]PS and [facility]PS to provide APS referral. Lulú state that someone from [facility] was out today to talk to her. SW informed pt that she will need to follow up [facility] her 's Medicaid transferred from [place] to [facility]. Pt states she understands, states [facility] has spoken to her about that. Pt states that her is not able to sign for his Social Security so she has an appointment to get it established that she gets her 's social security and then she can give it to [facility]. SW encouraged pt that if she starts to feel like she wants to harm herself or others to call Crisis or come to ED. Pt states understanding. Addendum entered by Sariat Banegas 03/17/22 16:22: SW attempted to call pt to follow up as Safety Plan was completed for pt, no answer, SW left message for pt to call this worker back. Original Note: Social Work Note SW received message from Olga at [facility]PS stating for this worker to go ahead and call [facility] APS as pt applied for Medicaid in [facility] and pt worked with [facility]. AMALIA placed a call to [facility] and spoke with Janice and provided APS referral. Janice states she will discuss with her mold yard supervisor. Sarita Banegas DRAFTER TOOL DESIGN, MIXER OPERATOR VACUUM PAN [employer]ALT
--- NOTE | 2022-03-29 14:19 | CM.ED ---
AMALIA Note AMALIA received voice mail from Lulú Jarrett advising that she is doing well and requested call back from Sarita Vilchis. AMALIA called Lulú and left voice stating Sarita is not available today but will be available on . AMALIA sent email to Sarita RODNEY
--- NOTE | 2022-03-31 16:53 | CM.ED ---
AMALIA received voice mail message from Lulú Jarrett [phone] who stated that she wanted to update the social science teacher, Sarita Vilchis. AMALIA called and left voice mail for Lulú Jarrett advising her that Sarita was not available today but will be back on Sunday at this number. Diana RODNEY
--- NOTE | 2022-04-03 15:19 | CM.ED ---
On this date forensic social worker received call from Lulú Jarrett. She said that she is having a rough time. She said that she would be coming into the ED. Lulú asked if the ED would turn her away? Lulú was advised that the ED staff would not turn her away. Lulú inquired as to how late patient is working and AMALIA advised Lulú. AMALIA notified art specialist Elaine RODNEY
== END 2022-03-16 17:34 | disposition home or self-care (01) ==
PROVIDERS: Emergency Provider Emergency Medicine; PCP Internal Medicine; Visit Provider Emergency Medicine
DX: F32.A Depression, unspecified (principal); I42.1 Obstructive hypertrophic cardiomyopathy; Z79.4 Long term (current) use of insulin; F41.9 Anxiety disorder, unspecified; I25.10 Atherosclerotic heart disease of native coronary artery without angina pectoris; E78.5 Hyperlipidemia, unspecified; I25.2 Old myocardial infarction; G47.33 Obstructive sleep apnea (adult) (pediatric); E66.9 Obesity, unspecified; Z79.899 Other long term (current) drug therapy; Z79.82 Long term (current) use of aspirin
CPT/HCPCS: 99284

== ENCOUNTER 2022-04-03 16:10 | Emergency (ER) | payer MEDICARE, BC, SELFPAY ==
[2022-04-03 16:11] VITALS: BP 173/76; PULSE 86; RESP 18; TEMP 36.5; O2SAT 96; BMI 36.1
--- NOTE | 2022-04-03 16:14 | EKG12_ITS ---
Test Reason : MENTAL HEALTH Blood Pressure : / mmHG Vent. Rate : 079 BPM Atrial Rate : 079 BPM P-R Int : 140 ms QRS Dur : 080 ms QT Int : 382 ms P-R-T Axes : 053 007 024 degrees QTc Int : 438 ms Normal sinus rhythm Cannot rule out Anterior infarct , age undetermined Abnormal ECG Confirmed by BALTA JIMENEZ, KIN ([id number]), marketing editor HEDY SCHERER ([id number]) on 04/04/2022 11:37:27 AM Referred By: WAYNE Confirmed By:KIN GIFFORD MD
--- NOTE | 2022-04-03 16:26 | EDS_ITS ---
HPI HPI - Psych History of Present Illness Chief Complaint: Mental Health Informant: patient Narrative Narrative: 72-year-old female presenting to the emergency department with stress.? Patient states that her has dementia and is in [place] [facility] [place].? She states that in December she tried to get on Medicaid and had conflict in relationship with her binder caser.? She states that this caused her great stress.? She states she had to get a sanitation worker cleaning equipment.? She reports that today she just cannot deal with the stress of caring for him. She states that today she got a bill from her [facility] [facility] [place] stating that she goes for February and March when she had already paid for February and he moved to a new one at the end of February. She states that she saw her tax examining technician last week and that her heart has gotten worse because of her stress. She is having difficulty sleeping. She is not eating normally. She went to go see a counselor who recommended that she see somebody with more experience so she has an appointment with a new counselor later this week. She has called our social services designee several times and is not coping well. She denies suicidal or homicidal ideation.?? 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 History of non-ST elevation myocardial infarction (NSTEMI) (06/2021) HOCM (hypertrophic obstructive cardiomyopathy) Hyperlipidemia Ileostomy in place Obstructive sleep apnea Osteoporosis Ovarian cancer Home Medications calcium citrate 315 mg calcium-vitamin D3 6.25 mcg (250 unit) tablet 1 ea PO BID 11/10/13 [History Last Taken 11/10/13 08:00] cholecalciferol (vitamin D3) 50 mcg (2,000 unit) tablet 2,000 unit PO DINNER 11/10/13 [History Last Taken 11/09/13 17:00] duloxetine 60 mg capsule,delayed release 120 mg PO DAILY 11/10/13 [History Last Taken 11/10/13 08:00] insulin aspart U-100 100 unit/mL (3 mL) subcutaneous pen (Novolog Flexpen U-100 Insulin aspart) 15 units subcut BREAKFAST 11/10/13 [History Last Taken 11/09/13 17:00] insulin aspart U-100 100 unit/mL (3 mL) subcutaneous pen (Novolog Flexpen U-100 Insulin aspart) units subcut TIDCM 11/10/13 [History Last Taken 11/10/13 08:00] lansoprazole 30 mg capsule,delayed release (Prevacid) 30 mg PO DAILY 11/10/13 [History Last Taken 11/10/13 08:00] multivitamin with folic acid 400 mcg tablet (Thera) 1 tab PO DAILY 11/10/13 [History Last Taken 11/10/13 08:00] albuterol sulfate 90 mcg/actuation aerosol inhaler 2 puff inhalation Q4H PRN PRN Sob &/Or Wheezing 12/19/20 [History Last Taken Unknown] leflunomide 10 mg tablet 10 mg PO DAILY 12/19/20 [History Last Taken Unknown] magnesium oxide 400 mg PO DAILY 12/19/20 [History Last Taken Unknown] trazodone 100 mg tablet 100 mg PO QHS 12/19/20 [History Last Taken Unknown] amlodipine 2.5 mg tablet 5 mg PO DAILY 12/26/21 [History Last Taken Unknown] aspirin 81 mg tablet,delayed release (Adult Low Dose Aspirin) 81 mg PO DAILY 12/26/21 [History Last Taken Unknown] atorvastatin 40 mg tablet 40 mg PO QHS 12/26/21 [History Last Taken Unknown] carvedilol 12.5 mg tablet 12.5 mg PO BID 12/26/21 [History Last Taken Unknown] clopidogrel 75 mg tablet 75 mg PO DAILY 12/26/21 [History Last Taken Unknown] estradiol 0.01% (0.1 mg/gram) vaginal cream 1 appful vaginal 2XW 12/26/21 [History Last Taken Unknown] hydroxychloroquine 200 mg tablet 200 mg PO DAILY 12/26/21 [History Last Taken Unknown] insulin glargine 100 unit/mL (3 mL) subcutaneous pen (Basaglar KwikPen U-100 Insulin) 17 unit subcut BID 12/26/21 [History Last Taken Unknown] iron 18 mg tablet 18 mg PO DAILY 12/26/21 [History Last Taken Unknown] loperamide 2 mg tablet 2 mg PO Q6H PRN Diarrhea 12/26/21 [History Last Taken Unknown] promethazine 25 mg tablet 25 mg PO Q6H PRN Nausea 12/26/21 [History Last Taken Unknown] trospium 20 mg tablet 20 mg PO DAILY 12/26/21 [History Last Taken Unknown] lorazepam 0.5 mg tablet 0.5 mg PO TID PRN anxiety #20 tabs 03/16/22 [Rx Last Taken Unknown] bumetanide 0.5 mg tablet 0.5 mg PO DAILY 04/03/22 [History Last Taken Unknown] Allergy/AdvReac Type Severity Reaction Status Date / Time KELLI Inhibitors Allergy Other Verified 04/03/22 16:13 adhesive tape Allergy Rash Verified 04/03/22 16:13 ciprofloxacin [From Cipro] AdvReac Other Verified 04/03/22 16:13 Surgical History History of cholecystectomy History of hysterectomy History of laminectomy History of left heart catheterization (07/04/21) Social History Smoking Status: Never smoker ROS ROS ED Constitutional Constitutional ED: Denies chills or weight loss Eyes Eyes: Denies change in vision or diplopia ENT ENT ED: Denies ear pain, rhinorrhea or sore throat Cardiovascular Cardiovascular: Denies chest pain, orthopnea, palpitations or racing heartbeat Respiratory/Chest Respiratory/Chest: Denies cough, dyspnea or orthopnea Gastrointestinal Gastrointestinal: Denies abdominal pain, diarrhea, nausea or vomiting Genitourinary Genitourinary ED: Denies dysuria, hematuria or urinary frequency Musculoskeletal Musculoskeletal: Denies arthralgias or myalgias Integumentary Denies abscess or rash Neurologic Neurologic: Denies headache(s) or weakness Psychiatric Psychiatric: Reports anxiety and depression; Denies suicidal ideation or suicidal thoughts Endocrine Endocrinology: Denies polydipsia, polyphagia or polyuria Allergic/Immunologic Allergic/Immunologic ED: Denies mouth swelling, tongue swelling or urticaria EXAM Physical Exam Const Vital Signs: 04/03/22 16:11 04/03/22 18:12 Temperature 97.7 F L Temperature Source Oral Pulse Rate 86 Respiratory Rate 18 16 Blood Pressure 173/76 H Blood Pressure Mean 108 Pulse Ox 96 Oxygen Delivery Method Room Air Positive well nourished and well developed General Appearance ED: well developed HEENT Reports normocephalic, head/scalp atraumatic and moist mucous membranes Eyes PERRL and EOMs intact bilaterally Neck no lymphadenopathy, supple and no JVD Resp normal respiratory effort and clear to auscultation bilaterally Cardio regular rate, regular rhythm and no murmurs GI normal to inspection, nondistended, normoactive bowel sounds and non-tender Palpation: soft Back/Spine no CVA tenderness and normal ROM Extremity normal to inspection General Extremety ED: Negative for edema General Extremity: Negative for edema Neuro oriented x3 and CN's II-XII intact bilaterally Sensorium / Orientation: alert Motor Exam: strength 5/5 throughout Psych mental status grossly normal Psych Narrative: Grandiose thinking. Paranoia. Appearance: grossly normal Mood & Affect: depressed and tearful Thought Content: No suicidality and No homicidality Skin no rashes or lesions noted and no wounds MDM MDM MDM Narrative Medical decision making narrative: Patient is medically cleared for psychiatric admission. Noted white count of 13.1 rather nonspecific. BUN of 43 with a creatinine 1.69. I suspect as this is been elevating over the past couple years this is probably related to her diabetes. Her urine shows 5-10 white cells 1+ bacteria 0-5 epithelial cells. She is nitrate negative. She is asymptomatic. I think that she does not need to be treated at this time we can do a culture. Her TSH is normal. Plan is admission to psychiatric facility Lab Data Attestation: I reviewed the patient's lab results. Labs: Laboratory Results - last 24 hr 04/03/22 04/03/22 04/03/22 16:43 16:43 16:43 WBC 13.1 H RBC 5.19 Hgb 15.3 H Hct 44.8 MCV 86.3 MCH 29.5 MCHC 34.2 RDW Std Deviation 44.6 H RDW Coeff of Vesna 14.3 Plt Count 270 MPV 9.8 Immature Gran % (Auto) 0.500 Neut % (Auto) 76.7 H Lymph % (Auto) 13.0 L [place] % (Auto) 7.4 Eos % (Auto) 1.8 Baso % (Auto) 0.6 Absolute Neuts (auto) 10.0 H Absolute Lymphs (auto) 1.69 Nucleated RBC % 0 Sodium 134 L Potassium 4.8 Chloride 109 H Carbon Dioxide 16.0 L Anion Gap 9 BUN 43 H Creatinine 1.69 H Estim Creat Clear Calc 24.89 Est GFR (MDRD) Af Amer 38 L Est GFR (MDRD) Non-Af 32 L BUN/Creatinine Ratio 25.4 H Glucose 162 H Calcium 9.5 Total Bilirubin 0.60 AST 23 ALT 28 Alkaline Phosphatase 65 Total Protein 7.9 Albumin 3.7 Globulin 4.2 Albumin/Globulin Ratio 0.9 TSH 0.59 Urine Color Urine Clarity Urine pH Ur Specific Riddle Urine Protein Urine Glucose (UA) Urine Ketones Urine Occult Blood Urine Nitrite Urine Bilirubin Urine Urobilinogen Ur Leukocyte Esterase Urine RBC Urine WBC Ur Squamous Epith Cells Urine Bacteria Hyaline Casts Coarse Granular Casts Urine Mucus Urine Opiates Screen Urine Methadone Screen Ur Barbiturates Screen Ur Phencyclidine Scrn Ur Amphetamines Screen MDMA (Ecstasy) Screen U Benzodiazepines Scrn Urine Cocaine Screen U Cannabinoids Screen Ur Drug Screen Comment Ethyl Alcohol < 3.0 04/03/22 04/03/22 18:10 18:10 WBC RBC Hgb Hct MCV MCH MCHC RDW Std Deviation RDW Coeff of Vesna Plt Count MPV Immature Gran % (Auto) Neut % (Auto) Lymph % (Auto) [place] % (Auto) Eos % (Auto) Baso % (Auto) Absolute Neuts (auto) Absolute Lymphs (auto) Nucleated RBC % Sodium Potassium Chloride Carbon Dioxide Anion Gap BUN Creatinine Estim Creat Clear Calc Est GFR (MDRD) Af Amer Est GFR (MDRD) Non-Af BUN/Creatinine Ratio Glucose Calcium Total Bilirubin AST ALT Alkaline Phosphatase Total Protein Albumin Globulin Albumin/Globulin Ratio TSH Urine Color Yellow Urine Clarity Clear Urine pH 5.0 Ur Specific Riddle 1.020 Urine Protein Negative Urine Glucose (UA) Normal Urine Ketones Negative Urine Occult Blood Negative Urine Nitrite Negative Urine Bilirubin Negative Urine Urobilinogen Normal Ur Leukocyte Esterase 25 H Urine RBC 0 SEEN Urine WBC 5-10 SEEN Ur Squamous Epith Cells 0-5 SEEN Urine Bacteria 1+ Hyaline Casts 5-10 SEEN Coarse Granular Casts 0-5 SEEN Urine Mucus 0 SEEN Urine Opiates Screen NEGATIVE Urine Methadone Screen NEGATIVE Ur Barbiturates Screen NEGATIVE Ur Phencyclidine Scrn NEGATIVE Ur Amphetamines Screen NEGATIVE MDMA (Ecstasy) Screen POSITIVE H U Benzodiazepines Scrn NEGATIVE Urine Cocaine Screen NEGATIVE U Cannabinoids Screen NEGATIVE Ur Drug Screen Comment Ethyl Alcohol Discharge Plan Triage Chief Complaint: Mental Health ED Provider: Sergio Rachel Dx/Rx/DC Orders Clinical Impression: Depression, Anxiety, Acute paranoia Prescriptions: No Action hydroxychloroquine 200 mg tablet 200 mg PO DAILY amlodipine 2.5 mg tablet 5 mg PO DAILY Basaglar KwikPen U-100 Insulin 100 unit/mL (3 mL) insulin pen 17 unit subcut BID estradiol 0.01 % (0.1 mg/gram) cream 1 appful vaginal 2XW trospium 20 mg tablet 20 mg PO DAILY atorvastatin 40 mg tablet 40 mg PO QHS carvedilol 12.5 mg tablet 12.5 mg PO BID Rx Instructions: must administer with a meal/food clopidogrel 75 mg tablet 75 mg PO DAILY aspirin [Adult Low Dose Aspirin] 81 mg tablet,delayed release (DR/EC) 81 mg PO DAILY promethazine 25 mg tablet 25 mg PO Q6H PRN (Reason: Nausea) Label Comments: take 1 tablet by mouth every 6 hours if needed for nausea and vomiting loperamide 2 mg tablet 2 mg PO Q6H PRN (Reason: Diarrhea) iron 18 mg tablet 18 mg PO DAILY lansoprazole [Prevacid] 30 MG capsule 30 mg PO DAILY Label Comments: acid reflux duloxetine 60 MG capsule 120 mg PO DAILY Label Comments: fibromyalgia/depression insulin aspart U-100 [Novolog Flexpen U-100 Insulin] 100 UNITS/ML insulin pen 15 units subcut BREAKFAST Label Comments: diabetes insulin aspart U-100 [Novolog Flexpen U-100 Insulin] 100 UNITS/ML insulin pen subcut TIDCM Label Comments: diabetes Rx Instructions: sliding scale cholecalciferol (vitamin D3) 2,000 UNIT tablet 2,000 unit PO DINNER Label Comments: supplement calcium citrate-vitamin D3 1 EACH tablet 1 ea PO BID Label Comments: supplement multivitamin with folic acid [Thera] 1 TABLET tablet 1 tab PO DAILY Label Comments: supplement leflunomide 10 MG tablet 10 mg PO DAILY trazodone 100 MG tablet 100 mg PO QHS albuterol sulfate 1 INHALER inhaler 2 puff INHALATION Q4H PRN PRN (Reason: Sob &/Or Wheezing) magnesium oxide 200 MG tablet 400 mg PO DAILY lorazepam [lorazepam] 0.5 mg tablet 0.5 mg PO TID PRN (Reason: anxiety) Qty: 20 0RF bumetanide 0.5 mg Tablet 0.5 mg PO DAILY Primary Care Provider: Pavithra Medellin Referrals: Pavithra Medellin MD [Primary Care Provider] - Disposition Disposition: Psychiatric Hospital or Unit
--- NOTE | 2022-04-03 16:48 | ED.RN ---
PER DR MORALES, PT DOES NOT NEED TO BE PLACED IN SUICIDAL PRECAUTIONS
--- NOTE | 2022-04-03 16:51 | ED.RN ---
PER RT STU, PT REFUSED EKG. DR MORALES MADE AWARE
[2022-04-03 16:59] LABS: Absolute Lymphocyte Count 1.69 X10^3/uL (0.83-4.51); Basophil# 0.08 X10^3/uL; Basophil% 0.6 % (0-1); Eosinophil# 0.24 X10^3/uL; Eosinophils% 1.8 % (0-5); Hematocrit 44.8 % (37-47); Hemoglobin 15.3 g/dL (12.0-15.0); Lymphocyte # 1.69 X10^3/ul (0.83-4.51); Mean Corp Hgb Conc 34.2 g/dL (32-36); Mean Corpuscular Hgb 29.5 pg (27.0-32.0); Mean Corpuscular Volume 86.3 fL (81-99); Mean Platelet Vol. 9.8 fl (6.2-12.0); Monocyte# 0.97 X10^3/uL; Monocyte% 7.4 % (0-10); NRBC Flagged by Analyzer 0 % (0-5); Neutrophil % 76.7 % (47-70); Platelet Count 270 K/mm3 (150-450); RBC Distribution Width CV 14.3 % (11.6-14.6); RBC Distribution Width SD 44.6 fl (35.1-43.9); Red Blood Count 5.19 M/mm3 (4.2-5.4); White Blood Count 13.1 K/mm3 (4.4-11.0)
[2022-04-03 17:24] LABS: ALB/GLOB Ratio 0.9 RATIO (0.9-2.4); AST(SGOT) 23 U/L (15-37); Alanine Aminotransfer ALT/SGPT 28 U/L (13-56); Albumin, Serum 3.7 g/dL (3.2-5.0); Alkaline Phosphatase 65 U/L (45-117); Anion Gap 9 (5-15); BUN 43 mg/dL (7-18); BUN/Creat Ratio 25.4 RATIO (10-20); Calcium,Total 9.5 mg/dL (8.5-10.1); Chloride 109 mmol/L (98-107); Creatinine, Serum 1.69 mg/dL (0.55-1.02); EST Glomerular Filtration Rate 32 mL/min (>60); Est Glom Filt Rate - Afr Amer 38 mL/min (>60); Estimated Creatinine Clearance 24.89 ml/min; Globulin 4.2 g/dL (2.2-4.2); Glucose 162 mg/dL (74-106); Potassium 4.8 mmol/L (3.5-5.1); Protein, Total 7.9 g/dL (6.4-8.2); Sodium Level 134 mmol/L (136-145); Thyroid Stim Hormone (TSH) 0.59 uIU/mL (0.358-3.74)
[2022-04-03 18:08] LABS: Alcohol, Blood (Medical)-Serum < 3.0 mg/dL
[2022-04-03 18:12] VITALS: RESP 16
[2022-04-03 18:19] LABS: Mucous, Urine 0 SEEN /hpf (<or=2+); Red Blood Cells-Urine 0 SEEN /hpf (0-5)
[2022-04-03 18:25] LABS: Color, Urine Yellow (Yellow); Glucose, Dipstick Normal (Normal); Ketone-Dipstick Negative (Negative); Leukocyte Esterase-Dipstick 25 /ul (Negative); Nitrite-Dipstick Negative (Negative); Occult Blood-Urine Negative /ul (Negative); Protein-Dipstick Negative (Negative); Urine Bilirubin Dipstick Negative (Negative); Urine Clarity Clear (Clear); Urine Urobilinogen Normal (Normal)
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
[2022-04-03 19:03] LABS: Bacteria 1+ /hpf (None Seen); Squamous Epithelial Cells - UA 0-5 SEEN /hpf (5-10); White Blood Cells 5-10 SEEN /hpf (0-5)
[2022-04-03 19:04] LABS: Coarse Granular Cast 0-5 SEEN /lpf (0-5 /lpf); Hyaline Cast 5-10 SEEN /lpf (0-5)
[2022-04-03 19:07] LABS: Amphetamine Urine VISTA NEGATIVE (<1000 ng/mL); Barbiturate Urine VISTA NEGATIVE (< 200 ng/mL); Benzodiazepine Urine VISTA NEGATIVE (< 200 ng/mL); Cocaine Urine VISTA NEGATIVE (< 300 ng/mL); Ecstacy Urine VISTA POSITIVE (< 500 ng/mL); Methadone Urine VISTA NEGATIVE (< 300 ng/mL); PCP Urine VISTA NEGATIVE (< 25 ng/mL); THC Urine VISTA NEGATIVE (< 50 ng/mL); Vista UDS pH Range 4
--- NOTE | 2022-04-03 19:08 | CM.ED ---
Addendum entered by Diana Sandoval 04/03/22 19:42: AMALIA called [facility]'s nurse line and they have no beds in [facility] but may have one tomorrow. AMALIA initiated the referral. AMALIA met with patient and daughter and confirmed that the plan at discharge is to return home, patient has NO CPAP, patient's daughter is POA but paperwork is at the home and patient has had all 4 of the Moderna vaccines. AMALIA faxed referral information to [facility]. Diana RODNEY Addendum entered by Diana Sandoval 04/03/22 19:30: Patient's daughter confirmed that patient's anxiety is debilitating . Original Note: SW met with patient and her daughter. Patient said are they going to lock me up with the criminally insane. SW explained that the criminally insane are not at psych facilities. Patient said does it have bars over the doors and windows and locked. SW explained that inpatient psychs are locked. Patient said are they going to give me my heart pills and social welfare research worker explained it is a hospital. SW explained that there will be individuals with alzheimers and dementia in a geripsych and patient verbalized understanding. Patient said if they would just give me the medicine.. it worked but I ran out and my doctor wouldn't give me anymore until I met with him and I couldn't meet with him till the end of the week. SW asked what patient was referencing and patient showed this sheet writer a prescription bottle for ativan. Daughter brought patient's STOMA supplies. SW called [facility] to update them that patient has a stoma. No answer and then disconnected. SW faxed referral to [facility]. Diana RODNEY
--- NOTE | 2022-04-03 21:52 | CM.ED ---
SW received call from Marisa at [facility] [phone]. She clarified regarding patient's delusions. Marisa called back and inquired about the stoma and Ileotomy and SW advised daughter had brought patient's supplies. AMALIA was advised by Marisa that patient was accepted at [facility]. Marisa said that the SHRINKING MACHINE OPERATOR is Marisa Lopez and the MD is Sharath eNgron. Marisa requested that [facility]ALTH [facility] call for transport. [place] called for transport for patient and transport will be 90-120 minutes. Patient and daughter updated. Daughter went home to get clothes for patient. RN will call report. RN to call report at [phone]. AMALIA called [facility] and stated no bed needed. AMALIA called [facility] and noted that no bed is needed. AMALIA called [facility] and stated no bed is needed. Plan: [facility] in [place].Family provided with information on contact information and address. AMALIA spoke to Trav elliott and patient's car is in the ED parking lot. He stated it would be fine for family to car pick up driver car tomorrow. Diana RODNEY
--- NOTE | 2022-04-03 22:07 | NURSING ---
report called to [facility] [phone]
[2022-04-03 22:13] VITALS: BP 135/76; PULSE 76; RESP 18; O2SAT 97
--- NOTE | 2022-04-04 10:52 | CM.ED ---
Social Work Note SW received message from Lynn at [facility] requesting pt's chart be faxed to them so they can update their chart for pt. AMALIA faxed requested clinicals to [facility]. Sarita Banegas USED CAR MANAGER, CRYOLITE RECOVERY OPERATOR
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
== END 2022-04-03 23:27 ==
LOC: ED 17:20
PROVIDERS: Emergency Provider Emergency Medicine; PCP Internal Medicine; Visit Provider Emergency Medicine
DX: F32.A Depression, unspecified (principal); I42.1 Obstructive hypertrophic cardiomyopathy; F22 Delusional disorders; Z79.4 Long term (current) use of insulin; F41.9 Anxiety disorder, unspecified; I25.10 Atherosclerotic heart disease of native coronary artery without angina pectoris; E78.5 Hyperlipidemia, unspecified; I25.2 Old myocardial infarction; Z79.82 Long term (current) use of aspirin; Z79.899 Other long term (current) drug therapy
CPT/HCPCS: 36415; 80053; 80307; 81001; 82077; 84443; 85025; 87086; 87811; 93005; 99285

== ENCOUNTER → 2022-12-21 | Outpatient (CLI) | payer MEDICARE, BC, SELFPAY ==
[2022-12-21 15:21] LABS: Absolute Lymphocyte Count 1.18 X10^3/uL (0.83-4.51); Basophil# 0.06 X10^3/uL; Basophil% 0.6 % (0-1); Eosinophil# 0.17 X10^3/uL; Eosinophils% 1.7 % (0-5); Hematocrit 38.6 % (37-47); Hemoglobin 12.5 g/dL (12.0-15.0); Lymphocyte # 1.18 X10^3/ul (0.83-4.51); Lymphocyte % 11.6 % (19-41); Mean Corp Hgb Conc 32.4 g/dL (32-36); Mean Corpuscular Hgb 28.2 pg (27.0-32.0); Mean Corpuscular Volume 86.9 fL (81-99); Mean Platelet Vol. 11.3 fl (6.2-12.0); Monocyte# 0.73 X10^3/uL; Monocyte% 7.2 % (0-10); NRBC Flagged by Analyzer 0 % (0-5); Neutrophil # 7.97 X10^3/uL (2.7-7.7); Neutrophil % 78.4 % (47-70); Platelet Count 200 K/mm3 (150-450); RBC Distribution Width CV 13.9 % (11.6-14.6); RBC Distribution Width SD 44.1 fl (35.1-43.9); Red Blood Count 4.44 M/mm3 (4.2-5.4); White Blood Count 10.2 K/mm3 (4.4-11.0)
[2022-12-21 15:25] LABS: Vitamin D,25 Hydroxy 65.2 ng/mL
[2022-12-21 15:29] LABS: AST(SGOT) 21 U/L (15-37); Alanine Aminotransfer ALT/SGPT 31 U/L (13-56); Albumin, Serum 3.6 g/dL (3.2-5.0); Alkaline Phosphatase 60 U/L (45-117); Anion Gap 5 (5-15); BUN 44 mg/dL (7-18); BUN/Creat Ratio 24.9 RATIO (10-20); Calcium,Total 8.2 mg/dL (8.5-10.1); Chloride 109 mmol/L (98-107); Cholesterol 132 mg/dL (200); Creatinine, Serum 1.77 mg/dL (0.55-1.02); EST Glomerular Filtration Rate 30 mL/min (>60); Est Glom Filt Rate - Afr Amer 36 mL/min (>60); Globulin 3.6 g/dL (2.2-4.2); Glucose 172 mg/dL (74-106); High Density Lipoprotein 62 mg/dL; Magnesium 1.3 mg/dL (1.6-2.6); Potassium 3.9 mmol/L (3.5-5.1); Protein, Total 7.2 g/dL (6.4-8.2); Sodium Level 136 mmol/L (136-145); Thyroid Stim Hormone (TSH) 0.55 uIU/mL (0.358-3.74); Triglycerides 122 mg/dL; Very Low Density Lipoprotein 24 mg/dL (5-40)
[2022-12-21 15:31] LABS: Hemoglobin A1c 7.2 % (3.8-5.6)
== END | disposition home or self-care (01) ==
LOC: BIMLAB 13:09
PROVIDERS: PCP Internal Medicine; Referring Provider Internal Medicine; Visit Provider Internal Medicine
DX: E11.9 Type 2 diabetes mellitus without complications (principal); M35.00 Sjogren syndrome, unspecified; I42.1 Obstructive hypertrophic cardiomyopathy; F41.9 Anxiety disorder, unspecified; F32.A Depression, unspecified; E78.5 Hyperlipidemia, unspecified; I10 Essential (primary) hypertension; K22.70 Barrett's esophagus without dysplasia; G47.33 Obstructive sleep apnea (adult) (pediatric); E55.9 Vitamin D deficiency, unspecified; Z13.220 Encounter for screening for lipoid disorders
CPT/HCPCS: 36415; 80053; 80061; 82306; 83036; 83735; 84443; 85025

== ENCOUNTER → 2023-01-01 | Outpatient (CLI) | payer MEDICARE, BC, SELFPAY ==
[2023-01-01 15:27] LABS: Anion Gap 5 (5-15); BUN 30 mg/dL (7-18); Calcium,Total 8.5 mg/dL (8.5-10.1); Chloride 112 mmol/L (98-107); EST Glomerular Filtration Rate 47 mL/min (>60); Est Glom Filt Rate - Afr Amer 57 mL/min (>60); Glucose 121 mg/dL (74-106); Magnesium 1.9 mg/dL (1.6-2.6); Potassium 4.7 mmol/L (3.5-5.1); Sodium Level 135 mmol/L (136-145)
== END | disposition home or self-care (01) ==
LOC: BIMLAB 13:34
PROVIDERS: PCP Internal Medicine; Visit Provider Internal Medicine
DX: E83.52 Hypercalcemia (principal); I10 Essential (primary) hypertension; T50.905A Adverse effect of unspecified drugs, medicaments and biological substances, initial encounter
CPT/HCPCS: 36415; 80048; 83735

== ENCOUNTER → 2023-01-17 | Outpatient (CLI) | payer MEDICARE, BC, SELFPAY ==
[2023-01-17 16:06] LABS: Anion Gap 8 (5-15); BUN 37 mg/dL (7-18); BUN/Creat Ratio 30.1 RATIO (10-20); Calcium,Total 9.3 mg/dL (8.5-10.1); Chloride 107 mmol/L (98-107); Creatinine, Serum 1.23 mg/dL (0.55-1.02); EST Glomerular Filtration Rate 46 mL/min (>60); Est Glom Filt Rate - Afr Amer 55 mL/min (>60); Glucose 244 mg/dL (74-106); Potassium 4.6 mmol/L (3.5-5.1); Sodium Level 138 mmol/L (136-145)
== END | disposition home or self-care (01) ==
LOC: BIMLAB 14:19
PROVIDERS: PCP Internal Medicine; Visit Provider Internal Medicine
DX: E83.52 Hypercalcemia (principal); E11.9 Type 2 diabetes mellitus without complications; T50.905A Adverse effect of unspecified drugs, medicaments and biological substances, initial encounter; I10 Essential (primary) hypertension
CPT/HCPCS: 36415; 80048

== ENCOUNTER → 2023-02-16 | Outpatient (CLI) | payer MEDICARE, BC, SELFPAY ==
[2023-02-16 16:11] LABS: Anion Gap 6 (5-15); BUN 30 mg/dL (7-18); BUN/Creat Ratio 26.1 RATIO (10-20); Calcium,Total 9.2 mg/dL (8.5-10.1); Chloride 109 mmol/L (98-107); Creatinine, Serum 1.15 mg/dL (0.55-1.02); EST Glomerular Filtration Rate 49 mL/min (>60); Est Glom Filt Rate - Afr Amer 60 mL/min (>60); Glucose 45 mg/dL (74-106); Potassium 4.6 mmol/L (3.5-5.1); Sodium Level 136 mmol/L (136-145)
== END | disposition home or self-care (01) ==
LOC: MTLAB 13:21
PROVIDERS: PCP Internal Medicine; Referring Provider Internal Medicine; Visit Provider Internal Medicine
DX: E83.52 Hypercalcemia (principal); T50.905A Adverse effect of unspecified drugs, medicaments and biological substances, initial encounter
CPT/HCPCS: 36415; 80048

== ENCOUNTER 2023-02-20 13:27 | Outpatient (CLI) | payer MEDICARE, BC, SELFPAY ==
[2023-02-20 13:37] VITALS: BP 155/71; PULSE 83; RESP 16; TEMP 35.9
[2023-02-20] MEDS: 0.9% NaCl Peripheral Flush Adult/Peds IV (13:42)
[2023-02-20] MEDS: 0.9% NaCl IVPB Med Flush (250 mL) 15 ML IV (13:53)
[2023-02-20] MEDS: Ceftriaxone 1 GM/50 ML BAG IV (13:53)
[2023-02-20 14:58] VITALS: BP 133/60; PULSE 76; RESP 16; TEMP 35.8; O2SAT 98
== END 2023-02-20 13:28 | disposition home or self-care (01) ==
LOC: MEDOUTP 13:28
PROVIDERS: PCP Internal Medicine; Referring Provider Internal Medicine; Visit Provider Internal Medicine
DX: N39.0 Urinary tract infection, site not specified (principal)
CPT/HCPCS: 96365; J7050; A4216

== ENCOUNTER 2023-02-21 13:29 | Outpatient (CLI) | payer MEDICARE, BC, SELFPAY ==
[2023-02-21] MEDS: Ceftriaxone 1 GM/50 ML BAG IV (13:43)
[2023-02-21] MEDS: 0.9% NaCl IVPB Med Flush (250 mL) 15 ML IV (13:43)
[2023-02-21] MEDS: 0.9% NaCl Peripheral Flush Adult/Peds IV ×2 (13:43→14:35)
[2023-02-21 13:47] VITALS: BP 132/50; PULSE 73; RESP 16; TEMP 36.1; O2SAT 100; BMI 34.0
[2023-02-21 14:39] VITALS: BP 113/66; PULSE 75; RESP 16
== END 2023-02-21 13:30 | disposition home or self-care (01) ==
LOC: MEDOUTP 13:29
PROVIDERS: PCP Internal Medicine; Referring Provider Internal Medicine; Visit Provider Internal Medicine
DX: N39.0 Urinary tract infection, site not specified (principal)
CPT/HCPCS: 96365; J7050; A4216

== ENCOUNTER 2023-02-22 13:20 | Outpatient (CLI) | payer MEDICARE, BC, SELFPAY ==
[2023-02-22] MEDS: 0.9% NaCl Peripheral Flush Adult/Peds IV (13:32)
[2023-02-22] MEDS: 0.9% NaCl IVPB Med Flush (250 mL) 15 ML IV (13:32)
[2023-02-22 13:43] VITALS: BP 132/54; PULSE 79; RESP 16; TEMP 35.9
[2023-02-22] MEDS: Ceftriaxone 1 GM/50 ML BAG IV (13:43)
[2023-02-22 14:30] VITALS: BP 136/51; PULSE 77; RESP 16
== END 2023-02-22 13:21 | disposition home or self-care (01) ==
PROVIDERS: PCP Internal Medicine; Referring Provider Internal Medicine; Visit Provider Internal Medicine
DX: N39.0 Urinary tract infection, site not specified (principal)
CPT/HCPCS: 96365; J7050; A4216

== ENCOUNTER 2023-02-23 19:21 | Emergency (ER) | payer MEDICARE, BC, SELFPAY ==
[2023-02-23 19:22] VITALS: BP 161/68; PULSE 85; RESP 16; TEMP 35.8; O2SAT 100; BMI 38.2
--- NOTE | 2023-02-23 19:53 | EDS_ITS ---
HPI History of Present Illness Chief Complaint: Complaint Informant: patient Narrative Narrative: Patient presents with UTI symptoms but also now starting to feel systemically ill. This patient has a long history of frequent UTIs. 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 But as she has had extensive radiation therapy to her lower abdomen nobody wants to do surgery for this. She almost always has E. coli bacteria. She was treated about a week ago with Macrobid. It was not helping her symptoms. She then received 3 IV doses of antibiotics as an outpatient although she is not sure what antibiotic this was. Last dose was yesterday afternoon. She states her temperature went up 3 points today. Normally she is 96 and it went up to just over 99. She has some mild nausea but no vomiting. She just feels somewhat bad. She has slight left flank pain. These are typical when her UTIs get worse. 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 History of non-ST elevation myocardial infarction (NSTEMI) (06/2021) HOCM (hypertrophic obstructive cardiomyopathy) Hyperlipidemia Ileostomy in place Obstructive sleep apnea Osteoporosis Ovarian cancer Home Medications insulin aspart U-100 100 unit/mL (3 mL) subcutaneous pen (Novolog FlexPen U-100 Insulin aspart) 15 units subcut BREAKFAST 11/10/13 [History Last Taken 11/09/13 17:00] insulin aspart U-100 100 unit/mL (3 mL) subcutaneous pen (Novolog FlexPen U-100 Insulin aspart) 100 units subcut TIDCM 11/10/13 [History Last Taken 11/10/13 08:00] multivitamin with folic acid 400 mcg tablet (Thera) 1 tab PO DAILY 11/10/13 [History Last Taken 11/10/13 08:00] leflunomide 10 mg tablet 10 mg PO DAILY 12/19/20 [History Last Taken Unknown] magnesium oxide 400 mg PO DAILY 12/19/20 [History Last Taken Unknown] amlodipine 2.5 mg tablet 5 mg PO DAILY 12/26/21 [History Last Taken Unknown] aspirin 81 mg tablet,delayed release (Adult Low Dose Aspirin) 81 mg PO DAILY 12/26/21 [History Last Taken Unknown] atorvastatin 40 mg tablet 40 mg PO QHS 12/26/21 [History Last Taken Unknown] estradiol 0.01% (0.1 mg/gram) vaginal cream 1 appful vaginal 2XW 12/26/21 [History Last Taken Unknown] hydroxychloroquine 200 mg tablet 200 mg PO DAILY 12/26/21 [History Last Taken Unknown] loperamide 2 mg tablet 2 mg PO Q6H PRN Diarrhea 12/26/21 [History Last Taken Unknown] trospium 20 mg tablet 20 mg PO DAILY 12/26/21 [History Last Taken Unknown] coq10 PO 1XD 05/11/22 [History Last Taken Unknown] denosumab 60 mg/mL subcutaneous syringe (Prolia) 60 mg subcut [id number] 05/11/22 [History Last Taken Unknown] fluocinolone 0.01 % topical solution (Synalar) 1 applic topical BID 05/11/22 [History Last Taken Unknown] lactobillus PO 05/11/22 [History Last Taken Unknown] methenamine-sod bebeto-salicyl 162 mg-97 mg-65 mg tablet tab PO 05/11/22 [History Last Taken Unknown] naltrexone cpd PO 05/11/22 [History Last Taken Unknown] duloxetine 60 mg capsule,delayed release 60 mg PO BID #180 caps 06/26/22 [Rx Last Taken Unknown] trazodone 100 mg tablet 100 mg PO QHS #90 tabs 06/26/22 [Rx Last Taken Unknown] nitroglycerin 0.4 mg sublingual tablet 0.4 mg sublingual Q5M PRN chest pain #30 tabs 12/20/22 [Rx Last Taken Unknown] ondansetron 4 mg disintegrating tablet 4 mg PO Q8H PRN PRN Nausea #10 tabs 02/23/23 [Rx Last Taken Unknown] Allergy/AdvReac Type Severity Reaction Status Date / Time insulin lispro Allergy Severe Swelling Verified 02/23/23 19:22 [From Humalog U-100 Insulin] KELLI Inhibitors Allergy Other Verified 02/23/23 19:22 adhesive tape Allergy Rash Verified 02/23/23 19:22 ciprofloxacin [From Cipro] AdvReac Other Verified 02/23/23 19:22 Surgical History History of cholecystectomy History of hysterectomy History of laminectomy History of left heart catheterization (07/04/21) Social History Smoking Status: Never smoker ROS ROS ED ROS Narrative A complete review of systems was performed and is negative except as documented in the history of present illness. Some specific details below. Constitutional: Patient has had some chills. Temperature as documented. EYE: No visual complaints or pain. ENT: No difficulty swallowing. No swelling. No pain. CV: No chest pain or palpitations. Respiratory: No dyspnea. No hemoptysis. No difficulty taking breaths. GI: Mild nausea but no vomiting. She has an ostomy in from her surgery for ovarian cancer and colon cancer about 18 years ago. She always has watery output this is unchanged. No blood. : She has had some dysuria and frequency consistent with her UTIs. Musculoskeletal: No recent trauma. No pains. Skin: No rash. Nondiaphoretic. Neuro: No weakness or numbness. Endocrine: No polyuria or polydipsia. EXAM Physical Exam Narrative Exam Narrative: CONSTITUTIONAL: Patient is nontoxic in appearance. The patient looks comfortable. HEENT: No notable trauma. Mucous membranes moist. No sinus tenderness. No indication of pain with swallowing. EYES: No conjunctival injection. No proptosis. CARDIOVASCULAR: Regular rate. Regular rhythm. No notable murmur. No JVD. RESPIRATORY: No respiratory distress. Breathing is unlabored. No wheezes. No rhonchi. No rales. No pain with a deep breath. GASTROINTESTINAL: Not distended. Bowel sounds are normal. No tenderness. No guarding. No rebound. GENITOURINARY: No tenderness over the bladder. Mild left-sided CVA tenderness. MUSCULOSKELETAL: Atraumatic. No peripheral edema. NEUROLOGICAL: Patient is alert and appropriate. No focal deficit noted. No confusion or lethargy. SKIN: No noted rashes. No diaphoresis. PSYCHIATRIC: Patient is calm. Mood is appropriate. Const Vital Signs: 02/23/23 19:22 02/23/23 21:11 Temperature 96.5 F L Temperature Source Temporal Pulse Rate 85 Respiratory Rate 16 Blood Pressure 161/68 H 140/60 H Blood Pressure Mean 99 86 Pulse Ox 100 MDM MDM MDM Narrative Medical decision making narrative: Patient CBC shows normal white count hemoglobin and platelets. Patient's electrolytes show no marked abnormalities. She did have mild elevation of BUN and creatinine and was given IV fluids. She also had high glucose at 306. She is on Basaglar and lispro. She is comfortable managing this. But this might be one of the causes of her frequency. Her lactate was normal. Her urine showed clear urine with no nitrites only 25 leukocyte esterase and only 5-10 white cells. Patient does admit that her symptoms are better but she was concerned because they are still continuing. I am wondering if her UTI was actually treated but she still having some frequency due to the hyperglycemia. She is comfortable going home. She has been dealing with this for some time. I will write for Cassie because she has had intermittent nausea. We still have cultures that are pending. We will not add further antibiotics at this time. Lab Data Attestation: I reviewed the patient's lab results. Labs: Laboratory Results - last 24 hr 02/23/23 02/23/23 02/23/23 19:40 20:16 20:16 WBC 10.4 RBC 4.29 Hgb 12.2 Hct 37.5 MCV 87.4 MCH 28.4 MCHC 32.5 RDW Std Deviation 45.9 H RDW Coeff of Vesna 14.4 Plt Count 245 MPV 9.6 Immature Gran % (Auto) 0.800 Neut % (Auto) 67.6 Lymph % (Auto) 18.5 L [place] % (Auto) 9.1 Eos % (Auto) 3.2 Baso % (Auto) 0.8 Absolute Neuts (auto) 7.0 Absolute Lymphs (auto) 1.92 Nucleated RBC % 0 Sodium 140 Potassium 4.7 Chloride 111 H Carbon Dioxide 22.0 Anion Gap 7 BUN 29 H Creatinine 1.15 H Estim Creat Clear Calc 34.46 Est GFR (MDRD) Af Amer 60 Est GFR (MDRD) Non-Af 49 L BUN/Creatinine Ratio 25.2 H Glucose 306 H Lactic Acid Calcium 8.7 Urine Color Yellow Urine Clarity Clear Urine pH 6.0 Ur Specific [place] 1.025 Urine Protein 30 H Urine Glucose (UA) 100 H Urine Ketones Negative Urine Occult Blood Negative Urine Nitrite Negative Urine Bilirubin Negative Urine Urobilinogen Normal Ur Leukocyte Esterase 25 H Urine RBC 0 SEEN Urine WBC 5-10 SEEN Ur Squamous Epith Cells 0-5 SEEN Urine Bacteria RARE Urine Mucus 0 SEEN 02/23/23 20:16 WBC RBC Hgb Hct MCV MCH MCHC RDW Std Deviation RDW Coeff of [place] Plt Count MPV Immature Gran % (Auto) Neut % (Auto) Lymph % (Auto) [place] % (Auto) Eos % (Auto) Baso % (Auto) Absolute Neuts (auto) Absolute Lymphs (auto) Nucleated RBC % Sodium Potassium Chloride Carbon Dioxide Anion Gap BUN Creatinine Estim Creat Clear Calc Est GFR (MDRD) Af Amer Est GFR (MDRD) Non-Af BUN/Creatinine Ratio Glucose Lactic Acid 1.7 Calcium Urine Color Urine Clarity Urine pH Ur Specific [place] Urine Protein Urine Glucose (UA) Urine Ketones Urine Occult Blood Urine Nitrite Urine Bilirubin Urine Urobilinogen Ur Leukocyte Esterase Urine RBC Urine WBC Ur Squamous Epith Cells Urine Bacteria Urine Mucus Discharge Plan Triage Chief Complaint: Complaint ED Provider: Suhas Nunes Dx/Rx/DC Orders Clinical Impression: Urinary frequency, Frequent UTI, Hyperglycemia Instructions: Urinary Tract Infections in Women Prescriptions: New ondansetron [ondansetron] 4 mg tablet,disintegrating 4 mg PO Q8H PRN PRN (Reason: Nausea) Qty: 10 0RF No Action hydroxychloroquine 200 mg tablet 200 mg PO DAILY amlodipine 2.5 mg tablet 5 mg PO DAILY estradiol 0.01 % (0.1 mg/gram) cream 1 appful vaginal 2XW trospium 20 mg tablet 20 mg PO DAILY atorvastatin 40 mg tablet 40 mg PO QHS aspirin [Adult Low Dose Aspirin] 81 mg tablet,delayed release (DR/EC) 81 mg PO DAILY loperamide 2 mg tablet 2 mg PO Q6H PRN (Reason: Diarrhea) duloxetine 60 mg capsule,delayed release(DR/EC) 60 mg PO BID Qty: 180 3RF coq10 PO 1XD Rx Instructions: 100mg lactobillus PO naltrexone cpd PO Rx Instructions: 4.5 Prolia 60 mg/mL syringe 60 mg subcut N2ICAIED methenamine-sod bebeto-salicyl 162-97-65 mg tablet PO fluocinolone [Synalar] 0.01 % solution 1 applic topical BID nitroglycerin 0.4 mg tablet, sublingual 0.4 mg sublingual Q5M PRN (Reason: chest pain) Qty: 30 1RF Rx Instructions: do not exceed 3 doses per episode insulin aspart U-100 [Novolog FlexPen U-100 Insulin] 100 UNITS/ML insulin pen 15 units subcut BREAKFAST Label Comments: diabetes insulin aspart U-100 [Novolog FlexPen U-100 Insulin] 100 UNITS/ML insulin pen 100 units subcut TIDCM Label Comments: diabetes Rx Instructions: sliding scale multivitamin with folic acid [Thera] 1 TABLET tablet 1 tab PO DAILY Label Comments: supplement leflunomide 10 MG tablet 10 mg PO DAILY magnesium oxide 200 MG tablet 400 mg PO DAILY trazodone 100 mg tablet 100 mg PO QHS Qty: 90 3RF Primary Care Provider: Pavithra Medellin Referrals: Pavithra Medellin MD [Primary Care Provider] - 1-2 Days if not improving Disposition Disposition: Home, Self Care
[2023-02-23 20:29] LABS: Absolute Lymphocyte Count 1.92 X10^3/uL (0.83-4.51); Basophil# 0.08 X10^3/uL; Basophil% 0.8 % (0-1); Eosinophil# 0.33 X10^3/uL; Eosinophils% 3.2 % (0-5); Hematocrit 37.5 % (37-47); Hemoglobin 12.2 g/dL (12.0-15.0); Lymphocyte # 1.92 X10^3/ul (0.83-4.51); Lymphocyte % 18.5 % (19-41); Mean Corp Hgb Conc 32.5 g/dL (32-36); Mean Corpuscular Hgb 28.4 pg (27.0-32.0); Mean Corpuscular Volume 87.4 fL (81-99); Mean Platelet Vol. 9.6 fl (6.2-12.0); Monocyte# 0.94 X10^3/uL; Monocyte% 9.1 % (0-10); NRBC Flagged by Analyzer 0 % (0-5); Neutrophil # 7.03 X10^3/uL (2.7-7.7); Neutrophil % 67.6 % (47-70); Platelet Count 245 K/mm3 (150-450); RBC Distribution Width CV 14.4 % (11.6-14.6); RBC Distribution Width SD 45.9 fl (35.1-43.9); Red Blood Count 4.29 M/mm3 (4.2-5.4); White Blood Count 10.4 K/mm3 (4.4-11.0)
[2023-02-23 20:43] LABS: Anion Gap 7 (5-15); BUN 29 mg/dL (7-18); BUN/Creat Ratio 25.2 RATIO (10-20); Calcium,Total 8.7 mg/dL (8.5-10.1); Chloride 111 mmol/L (98-107); Creatinine, Serum 1.15 mg/dL (0.55-1.02); EST Glomerular Filtration Rate 49 mL/min (>60); Est Glom Filt Rate - Afr Amer 60 mL/min (>60); Estimated Creatinine Clearance 34.46 ml/min; Glucose 306 mg/dL (74-106); Potassium 4.7 mmol/L (3.5-5.1); Sodium Level 140 mmol/L (136-145)
[2023-02-23 20:43] LABS: Mucous, Urine 0 SEEN /hpf (<or=2+); Red Blood Cells-Urine 0 SEEN /hpf (0-5)
[2023-02-23 20:48] LABS: Color, Urine Yellow (Yellow); Glucose, Dipstick 100 mg/dl (Normal); Ketone-Dipstick Negative (Negative); Leukocyte Esterase-Dipstick 25 /ul (Negative); Nitrite-Dipstick Negative (Negative); Occult Blood-Urine Negative /ul (Negative); Protein-Dipstick 30 mg/dl (Negative); Specific Gravity, Urine 1.025 (1.002-1.030); Urine Bilirubin Dipstick Negative (Negative); Urine Clarity Clear (Clear); Urine Urobilinogen Normal (Normal)
[2023-02-23 20:52] LABS: Lactic Acid 1.7 mmol/L (0.4-1.9)
[2023-02-23 21:01] LABS: Bacteria RARE /hpf (None Seen); Squamous Epithelial Cells - UA 0-5 SEEN /hpf (5-10); White Blood Cells 5-10 SEEN /hpf (0-5)
[2023-02-23 21:11] VITALS: BP 140/60
[2023-02-23 23:19] VITALS: BP 145/63
== END 2023-02-23 23:19 | disposition home or self-care (01) ==
PROVIDERS: Emergency Provider Emergency Medicine; PCP Internal Medicine; Visit Provider Emergency Medicine
DX: N39.0 Urinary tract infection, site not specified (principal); Z79.4 Long term (current) use of insulin; I25.10 Atherosclerotic heart disease of native coronary artery without angina pectoris; E78.5 Hyperlipidemia, unspecified; R35.0 Frequency of micturition; R73.9 Hyperglycemia, unspecified; I25.2 Old myocardial infarction; G47.33 Obstructive sleep apnea (adult) (pediatric); Z79.899 Other long term (current) drug therapy; Z79.82 Long term (current) use of aspirin
CPT/HCPCS: 80048; 81001; 83605; 85025; 87040; 87086; 96360; 99282; J7040

== ENCOUNTER → 2023-02-26 | Outpatient (CLI) | payer MEDICARE, BC, SELFPAY ==
[2023-02-26 17:56] LABS: Bacteria 0 SEEN /hpf (None Seen); Mucous, Urine 0 SEEN /hpf (<or=2+); Red Blood Cells-Urine 0 SEEN /hpf (0-5)
[2023-02-26 18:12] LABS: Color, Urine Yellow (Yellow); Glucose, Dipstick Normal (Normal); Ketone-Dipstick Negative (Negative); Leukocyte Esterase-Dipstick Negative /ul (Negative); Nitrite-Dipstick Negative (Negative); Occult Blood-Urine Negative /ul (Negative); Protein-Dipstick 15 mg/dl (Negative); Urine Bilirubin Dipstick Negative (Negative); Urine Clarity Sl. Cloudy (Clear); Urine Urobilinogen Normal (Normal)
[2023-02-26 18:41] LABS: White Blood Cells 0-5 SEEN /hpf (0-5)
[2023-02-26 18:42] LABS: Squamous Epithelial Cells - UA 0-5 SEEN /hpf (5-10)
== END | disposition home or self-care (01) ==
PROVIDERS: PCP Internal Medicine; Visit Provider Physician Assistant Surgical
DX: N39.0 Urinary tract infection, site not specified (principal)
CPT/HCPCS: 81001; 87086

== ENCOUNTER 2023-05-31 12:51 | Outpatient (CLI) | payer MEDICARE, BC, SELFPAY ==
[2023-05-31 13:11] VITALS: BP 113/65; PULSE 89; RESP 16; TEMP 35.9; O2SAT 98
[2023-05-31] MEDS: DENOSUMAB 60 MG/ML SC (13:15)
== END 2023-05-31 12:52 | disposition home or self-care (01) ==
PROVIDERS: PCP Internal Medicine; Referring Provider Internal Medicine; Visit Provider Internal Medicine
DX: M81.0 Age-related osteoporosis without current pathological fracture (principal)
CPT/HCPCS: 96372; J0897

== ENCOUNTER → 2023-07-13 | Outpatient (CLI) | payer MEDICARE, BC, SELFPAY ==
[2023-07-13 15:08] LABS: Absolute Lymphocyte Count 1.15 X10^3/uL (0.83-4.51); Absolute Neutrophil Count 6.6 X10^3/uL (2.0-7.7); Basophil# 0.06 X10^3/uL; Basophil% 0.7 % (0-1); Eosinophil# 0.21 X10^3/uL; Eosinophils% 2.4 % (0-5); Hematocrit 39.4 % (37-47); Hemoglobin 12.4 g/dL (12.0-15.0); Lymphocyte # 1.15 X10^3/ul (0.83-4.51); Lymphocyte % 13.2 % (19-41); Mean Corp Hgb Conc 31.5 g/dL (32-36); Mean Corpuscular Hgb 26.7 pg (27.0-32.0); Mean Corpuscular Volume 84.9 fL (81-99); Mean Platelet Vol. 10.4 fl (6.2-12.0); Monocyte# 0.63 X10^3/uL; Monocyte% 7.2 % (0-10); NRBC Flagged by Analyzer 0 % (0-5); Neutrophil # 6.59 X10^3/uL (2.7-7.7); Neutrophil % 75.4 % (47-70); Platelet Count 198 K/mm3 (150-450); RBC Distribution Width CV 16.2 % (11.6-14.6); RBC Distribution Width SD 50.2 fl (35.1-43.9); Red Blood Count 4.64 M/mm3 (4.2-5.4); White Blood Count 8.7 K/mm3 (4.4-11.0)
[2023-07-13 15:54] LABS: Hemoglobin A1c 8.8 % (3.8-5.6)
[2023-07-13 16:01] LABS: Vitamin D,25 Hydroxy 46.9 ng/mL
[2023-07-13 16:06] LABS: ALB/GLOB Ratio 0.8 RATIO (0.9-2.4); AST(SGOT) 22 U/L (15-37); Alanine Aminotransfer ALT/SGPT 25 U/L (13-56); Albumin, Serum 3.1 g/dL (3.2-5.0); Alkaline Phosphatase 82 U/L (45-117); Anion Gap 7 (5-15); BUN 40 mg/dL (7-18); BUN/Creat Ratio 30.1 RATIO (10-20); Calcium,Total 8.8 mg/dL (8.5-10.1); Chloride 104 mmol/L (98-107); Cholesterol 193 mg/dL (200); Creatinine, Serum 1.33 mg/dL (0.55-1.02); EST Glomerular Filtration Rate 42 mL/min (>60); Est Glom Filt Rate - Afr Amer 50 mL/min (>60); Globulin 3.8 g/dL (2.2-4.2); Glucose 149 mg/dL (74-106); High Density Lipoprotein 58 mg/dL; Magnesium 2.2 mg/dL (1.6-2.6); Potassium 5.3 mmol/L (3.5-5.1); Protein, Total 6.9 g/dL (6.4-8.2); Sodium Level 136 mmol/L (136-145); Thyroid Stim Hormone (TSH) 0.87 uIU/mL (0.358-3.74); Triglycerides 230 mg/dL; Very Low Density Lipoprotein 46 mg/dL (5-40)
== END | disposition home or self-care (01) ==
LOC: BIMLAB 13:10
PROVIDERS: PCP Internal Medicine; Visit Provider Internal Medicine
DX: E11.9 Type 2 diabetes mellitus without complications (principal); E78.5 Hyperlipidemia, unspecified; I10 Essential (primary) hypertension; N39.0 Urinary tract infection, site not specified; M81.0 Age-related osteoporosis without current pathological fracture; E83.52 Hypercalcemia; G47.33 Obstructive sleep apnea (adult) (pediatric); T50.905A Adverse effect of unspecified drugs, medicaments and biological substances, initial encounter
CPT/HCPCS: 36415; 80053; 80061; 82306; 83036; 83735; 84443; 85025

== ENCOUNTER → 2023-08-29 | Outpatient (CLI) | payer MEDICARE, BC, SELFPAY ==
--- NOTE | 2023-08-29 10:34 | RAD_ITS ---
STUDY: X-RAY - LEFT KNEE REASON FOR EXAM: Female, 73 years old. Pain. TECHNIQUE: 4 view(s) of the knee. COMPARISON: None. FINDINGS: Osteopenia. Moderate to marked medial compartmental arthrosis with osteophytes. Mild arthrosis of the lateral femorotibial compartment Lateral tilt and subluxation of the patella with [id number] thinning of the articular cartilage of the patellofemoral compartment. Chondrocalcinosis. Small joint effusion. Normal soft tissues. RAD/Knee 4 or More Views IMPRESSION: Osteopenia with tricompartmental arthrosis, most prominent medially, as described. Chondrocalcinosis. Electronically Signed: Josh Plummer MD at 13:50 EST ,
== END | disposition home or self-care (01) ==
LOC: MTRAD 10:33
PROVIDERS: PCP Internal Medicine; Referring Provider Family Medicine; Visit Provider Family Medicine
DX: M25.562 Pain in left knee (principal)
CPT/HCPCS: 73564

== ENCOUNTER 2023-11-29 14:00 | Outpatient (CLI) | payer MEDICARE, BC, SELFPAY ==
[2023-11-29 14:29] VITALS: BP 164/63; PULSE 68; RESP 16; TEMP 36.3; O2SAT 96; BMI 36.6
[2023-11-29] MEDS: DENOSUMAB 60 MG/ML SC (14:32)
== END 2023-11-29 14:01 | disposition home or self-care (01) ==
LOC: MEDOUTP 14:00
PROVIDERS: PCP Internal Medicine; Referring Provider Internal Medicine; Visit Provider Internal Medicine
DX: M81.0 Age-related osteoporosis without current pathological fracture (principal)
CPT/HCPCS: 96372; J0897

== ENCOUNTER 2024-06-06 12:28 | Outpatient (CLI) | payer MEDICARE, BC, SELFPAY ==
[2024-06-06 12:37] VITALS: BP 140/48; PULSE 81; RESP 16; TEMP 36.1; O2SAT 96; BMI 36.2
[2024-06-06] MEDS: DENOSUMAB 60 MG/ML SC (12:39)
== END 2024-06-06 23:59 | disposition home or self-care (01) ==
LOC: MEDOUTP 12:28
PROVIDERS: PCP Internal Medicine; Referring Provider Internal Medicine; Visit Provider Internal Medicine
DX: M81.0 Age-related osteoporosis without current pathological fracture (principal)
CPT/HCPCS: 96372; J0897

== ENCOUNTER 2025-01-02 13:10 | Outpatient (CLI) | payer MEDICARE, BC, SELFPAY ==
[2025-01-02 13:21] VITALS: BP 148/60; PULSE 70; RESP 16; TEMP 35.5; O2SAT 95; BMI 36.9
[2025-01-02] MEDS: DENOSUMAB 60 MG/ML SC (14:01)
== END 2025-01-02 23:59 | disposition home or self-care (01) ==
LOC: MEDOUTP 13:15
PROVIDERS: PCP Registered Nurse; Referring Provider Internal Medicine; Visit Provider Internal Medicine
DX: M81.0 Age-related osteoporosis without current pathological fracture (principal)
CPT/HCPCS: 96372; J0897

== ENCOUNTER 2025-07-13 14:21 | Outpatient (CLI) | payer MEDICARE, BC, SELFPAY ==
[2025-07-13 14:30] VITALS: BP 169/78; PULSE 82; RESP 16; TEMP 35.3; O2SAT 96; BMI 35.6
[2025-07-13] MEDS: DENOSUMAB 60 MG/ML SC (15:03)
[2025-07-13 15:05] VITALS: BP 145/68; PULSE 74
== END 2025-07-13 23:59 | disposition home or self-care (01) ==
LOC: MEDOUTP 14:22
PROVIDERS: PCP Registered Nurse; Referring Provider Internal Medicine; Visit Provider Internal Medicine
DX: M81.0 Age-related osteoporosis without current pathological fracture (principal)
CPT/HCPCS: 96372; J0897